=== PATIENT | female | born 1960 | race Caucasian/White ===

== ENCOUNTER 2021-04-05 18:02 | Outpatient (REF) | payer BC, SELFPAY ==
[2021-04-05 18:08] LABS: Appearance Urine HAZY; Color Urine YELLOW; Glucose Urine UA NEG (NEG); Leukocyte Esterase Urine 3+ (NEG); Nitrite Urine NEG (NEG); UACC Culture Trigger YES; Urine Blood TRACE (NEG); Urine Ketones NEG (NEG); Urine Protein NEG (NEG-TRACE)
[2021-04-05 18:17] LABS: Bacteria Urine 1+ /LPF; RBC Urine 0-2 /HPF (0); Squamous Epithelial Cell Urine 2+ /LPF
== END 2021-04-05 18:03 | disposition home or self-care (01) ==
LOC: HO.LNP 18:02
PROVIDERS: Visit Provider Physician Assistant
DX: N39.0 Urinary tract infection, site not specified (principal)
CPT/HCPCS: 81001; 87086

== ENCOUNTER 2021-04-18 16:20 | Outpatient (REF) | payer BC, SELFPAY ==
--- NOTE | ~2021-04-18 | US_ITS ---
EXAMINATION: US RETROPERITONEAL LIMITED (RENAL ONLY) CLINICAL INFORMATION: Calculus of kidney. COMPARISON: Ultrasound kidneys and bladder 07/05/2019. KUB and renal ultrasound 11/02/2018. TECHNIQUE: Real-time imaging of the kidneys. FINDINGS: RIGHT KIDNEY: 11.3 x 3.5 x 4.5 cm (SAG x AP x TRV). The kidney is normal in size, contour, and echogenicity. Renal cortical thickness is normal. No calculi or focal parenchymal lesions. No hydronephrosis. LEFT KIDNEY: 10.8 x 4.3 x 3.7 cm (SAG x AP x TRV). The kidney is normal in size, contour, and echogenicity. Renal cortical thickness is normal. No calculi or focal parenchymal lesions. No hydronephrosis. US/US renal BI IMPRESSION: Normal renal ultrasound. No stone seen.
== END 2021-04-18 16:21 | disposition home or self-care (01) ==
LOC: HO.US 16:20
PROVIDERS: Visit Provider Internal Medicine
DX: N20.0 Calculus of kidney (principal)
CPT/HCPCS: 76775

== ENCOUNTER 2021-04-26 10:53 | Outpatient (REF) | payer BC, SELFPAY ==
--- NOTE | ~2021-04-26 | MM_ITS ---
EXAMINATION: MM SCREENING DIGITAL BREAST TOMOSYNTHESIS, BILATERAL CLINICAL INFORMATION: Screening. Asymptomatic. The lifetime risk of breast cancer based on the Tyrer-Cuzick Model is 13.6%. COMPARISON: Mammography: January 28, 2019 and studies dating back to March 28, 2012 TECHNIQUE: Digital breast tomosynthesis is performed in both the craniocaudal and mediolateral oblique views along with computer-aided detection (CAD). Synthesized 2D images are generated from the tomosynthesis. FINDINGS: There are scattered areas of fibroglandular density (ACR BI-RADS breast composition Category b). There are no significant masses, abnormal calcifications, or other abnormalities. MM/MM tomosynthesis screening BI IMPRESSION: There are no significant changes from prior study. ASSESSMENT: BI-RADS 1: Negative RECOMMENDATION: Routine annual mammography screening. This patient's information was entered into a reminder system with a target due date for their next mammogram.
--- NOTE | ~2021-04-26 | XR_ITS ---
EXAMINATION: XR ABDOMEN KUB CLINICAL INDICATION: Low back pain COMPARISON: Previous KUB October 2018 and renal ultrasound 04/18/2021 TECHNIQUE: AP view of the abdomen. FINDINGS: There are no calcifications projecting is seen projecting over the kidneys. There are stable pelvic calcifications likely representing calcified phleboliths. The bowel gas pattern is normal. There are degenerative changes of the lower lumbar spine. XR/XR KUB IMPRESSION: No renal stone seen.
== END 2021-04-26 10:54 | disposition home or self-care (01) ==
LOC: HO.MAMMO 10:53
PROVIDERS: PCP Internal Medicine; Visit Provider Internal Medicine
DX: Z12.31 Encounter for screening mammogram for malignant neoplasm of breast (principal); M54.50 Low back pain, unspecified
CPT/HCPCS: 74018; 77063; 77067

== ENCOUNTER 2021-05-09 09:55 | Outpatient (REF) | payer BC, SELFPAY ==
--- NOTE | ~2021-05-09 | US_ITS ---
EXAMINATION: US ABDOMEN COMPLETE CLINICAL INFORMATION: Lower abdominal pain. COMPARISON: KUB 04/26/2021. Renal ultrasound 04/18/2021 TECHNIQUE: Real-time imaging of the abdominal viscera. FINDINGS: PANCREAS: Normal. ABDOMINAL AORTA: The proximal, mid, and distal segments are normal in caliber. INFERIOR VENA CAVA: Visualized portions are normal. LIVER: Normal. The liver is normal in size. The liver contour is normal. Parenchymal echogenicity is normal. No focal hepatic lesion. There is no intrahepatic biliary duct dilatation seen. GALLBLADDER: Surgically absent. COMMON BILE DUCT: Normal in caliber measuring 0.41 cm in diameter. RIGHT KIDNEY: No hydronephrosis. No renal calculi or focal parenchymal lesions. The kidney measures 10.7 cm in maximum dimension. There is mild fullness right kidney. LEFT KIDNEY: Normal. No hydronephrosis. No renal calculi or focal parenchymal lesions. The kidney measures 9.6 cm in maximum dimension. SPLEEN: Normal. The spleen measures 9.2 cm in maximum dimension. FREE FLUID: None. US/US abdomen complete IMPRESSION: Mild fullness right kidney pelvis. Otherwise unremarkable complete abdomen ultrasound.
== END 2021-05-09 09:56 | disposition home or self-care (01) ==
LOC: HO.HMGCX 09:55
PROVIDERS: PCP Internal Medicine; Visit Provider Internal Medicine
DX: R10.30 Lower abdominal pain, unspecified (principal)
CPT/HCPCS: 76700

== ENCOUNTER 2021-05-17 15:26 | Outpatient (REF) | payer BC, SELFPAY ==
--- NOTE | ~2021-05-17 | US_ITS ---
EXAMINATION: US PELVIS CLINICAL INFORMATION: Lower abdominal pain. COMPARISON: None. TECHNIQUE: Ultrasound of the pelvis is performed using both transabdominal and transvaginal transducers along with Doppler. Transvaginal imaging is performed due to inadequate visualization transabdominally. FINDINGS: Uterus: The uterus is anteverted and measures 6.6 x 2.4 x 4.1 cm for a volume of 35 mL. The double wall endometrial thickness is 2.0 mm. A small amount of fluid is present in the endometrial cavity. The uterus is smooth in contour and has normal myometrial echogenicity. 3 uterine fibroids are present measuring 1.1 x 0.7 x 0.9 cm, 0.7 x 0.8 x 0.8 cm, and 0.9 x 0.8 x 0.7 cm. These are all clustered near the fundus. Adnexa: The right ovary could not be visualized. Left ovary was not seen with certainty but may measure 1.4 x 0.8 x 1.1 cm. US/US pelvic and transvaginal IMPRESSION: 1. Small uterine fibroids as described above. 2. Suboptimal visualization of the ovaries.
== END 2021-05-17 15:27 | disposition home or self-care (01) ==
LOC: HO.HMGCX 15:26
PROVIDERS: Visit Provider Internal Medicine
DX: R10.30 Lower abdominal pain, unspecified (principal)
CPT/HCPCS: 76830; 76856

== ENCOUNTER 2021-06-26 15:08 | Outpatient (REF) | payer BC, SELFPAY ==
--- NOTE | ~2021-06-26 | MM_ITS ---
EXAMINATION: BONE DENSITOMETRY CLINICAL INDICATION: Age-related osteoporosis without current pathological fracture. COMPARISON: Previous BD dated 01/17/2020 and baseline BD dated 01/31/2015. TECHNIQUE: Using a [employer] DXA System (software version: 13.1) manufactured by [employer], dual-energy x-ray absorptiometry was performed of the lumbar spine and left hip. The images are of good technical quality. Summary results are attached. FINDINGS: AP SPINE L1-L4: Current: BMD 1.169 g/cm2, Z-score 1.2, T-score -0.1, normal, 7.1% increase from previous, 13.2% increase from baseline (<5% change is not significant). Prior: BMD 1.091 g/cm2. Baseline: BMD 1.033 g/cm2. LEFT FEMUR, NECK: Current: BMD 0.644 g/cm2, Z-score -1.5, T-score -2.8, osteoporosis. Prior: BMD 0.633 g/cm2. Baseline: BMD 0.647 g/cm2. LEFT FEMUR, TOTAL: Current: BMD 0.727 g/cm2, Z-score -1.2, T-score -2.2, osteopenia, 2.4% increase from previous, 4.3% increase from baseline (<5% change is not significant). Prior: BMD 0.710 g/cm2. Baseline: BMD 0.697 g/cm2. IDENTIFIED RISK FACTORS: Osteoporosis, history of fracture (adult), menopause. HISTORY OF FRACTURE: Elbow. MEDICATIONS: Calcium supplements or multivitamin, vitamin D, bisphosphonate. MM/XR DEXA axial skeleton IMPRESSION: 1. DIAGNOSIS: Osteoporosis based on the lowest T-score value of -2.8 in the femoral neck applying World Health Organization criteria. 2. 10-YEAR FRACTURE RISK PREDICTION, FRAX: According to the guidelines, FRAX calculation should only be performed on patients in the osteopenia bone density category. 3. Treatment Recommendations: NOF guidelines recommend consideration for treatment in postmenopausal women and men age 50 and older presenting with the following: -A hip or vertebral (clinical or morphometric) fracture. -T-score less than or equal to -2.5 at the femoral neck or spine after appropriate evaluation to exclude secondary causes. -Low bone mass at the hip or spine and a 10-year fracture probability by FRAX of greater than or equal to 3% for hip fracture or greater than or equal to 20% for major osteoporotic fracture based on the [place] adapted WHO algorithm. 4. Other Recommendations: All treatment decisions require clinical judgment and consideration of individual patient factors, including patient preferences, comorbidities, previous drug use, risk factors not captured in the FRAX model (e.g. frailty, falls, vitamin D deficiency, increased bone turnover, interval significant decline in bone density) and possible under or overestimation of fracture risk by FRAX. Additional medical evaluation for secondary cause of low bone mineral density may be appropriate. FUTURE SCAN RECOMMENDATION: People with diagnosed cases of osteoporosis or at high risk for fracture should have regular bone mineral density tests. For patients eligible for Medicare, routine testing is allowed once every 2 years. The testing frequency can be increased to one year for patients who have rapidly progressing disease, those who are receiving or discontinuing medical therapy to restore bone mass, or have additional risk factors.
== END 2021-06-26 15:09 | disposition home or self-care (01) ==
LOC: HO.MAMMO 15:08
PROVIDERS: Visit Provider Internal Medicine
DX: M81.0 Age-related osteoporosis without current pathological fracture (principal); Z78.0 Asymptomatic menopausal state
CPT/HCPCS: 77080

== ENCOUNTER → 2021-07-19 16:07 | Outpatient (BNVA) | payer BC, SELFPAY | PROVIDERS: PCP Internal Medicine; Referring Provider Internal Medicine; Visit Provider Nurse Practitioner ==

== ENCOUNTER 2021-10-05 09:15 | Day surgery (SDC) | payer BC, SELFPAY ==
[2021-08-02 11:09] VITALS: BMI 25.2
[2021-10-05 09:21] VITALS: BP 112/43; PULSE 67; RESP 18; TEMP 36.6; O2SAT 97
--- NOTE | 2021-10-05 09:48 | MHC.SHP ---
Pre-Procedural Eval Section A Date of Service: 10/05/21 The patient is an INPATIENT: No The History & Physical has been completed within 30 days and I have reviewed it.: No Section B Chief Complaint: Screen, hx of polyps, Family hx of Colon Cancer Details of Present Illness: Colon cancer screening, history of colon polyps, family history of colon polyps (Dad in his 60's) Relevant Family History (Specify if Yes): Yes Relevant Social History: Tobacco Use (former smoker) Present Medications: see Short Stay Collaborative assessment Medical History: Significant History (Osteoporosis Impaired fasting glucose Nephrolithiasis Migraine Low back pain) History of Previous Operations: Relevant previous surgery/procedure and date(s) (History of colonoscopy Hx laparoscopic cholecystectomy Previous section) Allergies: Allergies Allergy/AdvReac Type Severity Reaction Status Date / Time Sulfa (Sulfonamide Allergy Severe itching/swelling Verified 08/02/21 11:06 Antibiotics) from sulfa [SULFA (SULFONAMIDE eyedrops/family ANTIBIOTICS)] hx sulfa allery Review of Systems Sugical H&P ROS: Negative: Constitution, Cardiovascular, Respiratory and Gastrointestinal Exam Surgical H&P Exam: Normal: Heart, Normal: Lungs, Normal: Extremities and Normal: Abdomen Plan Diagnosis/Plan: Unchanged I have reviewed the history and physical and performed a pertinent physical examination on my patient. No changes have occurred unless specified.
--- NOTE | 2021-10-05 09:51 | W.PM.OPN ---
Operative Note Operative Note Date of Service: 10/05/21 Narrative: Pre-op diagnosis: Colon cancer screening, history of colon polyps, family history of colon polyps (Dad in his 60's) Post-op diagnosis:?other (Colon polyps, diverticulosis, hemorrhoids) Procedure: COLONOSCOPY TILL CECUM WITH BIOPSY, SNARE POLYPECTOMY AND SUBMUCOSAL INJECTION Consent: Indications for the procedure and potential complications of bleeding, perforation, reaction to medications and missed diagnosis were discussed with the patient and informed consent was obtained. Instrument: Olympus PCF H 190 L variable stiffness pediatric colonoscope Monitoring: Vital signs and clinical assessment, intermittent blood pressure monitoring, continuous EKG monitoring, Pulse oximetry and Carbon Dioxide monitoring were done throughout the procedure. Colon withdrawl time was 22 minutes. Procedure: The patient was placed in the left lateral decubitis position and pre-procedure medications were administered. After a digital rectal examination of the ano-rectum, the video colonoscope was inserted into the rectum and advanced through the colon to the cecum. The colonoscope was slowly withdrawn in a retrograde panoramic fashion and the colon mucosa was carefully examined including a retroflexed view of the rectum. Findings and interventions are described below. Procedure Difficulty:? Colon was long and tortuous and there was some loop formation. No manuvers were required Findings: Terminal Ileum: Not evaluated Cecum:? A 10 mm flat polyp removed with a cold snare Ascending Colon:? A 7-8 mm sessile polyp ? at site of previous polypectomy removed with a cold snare - polyp was not retrieved.? A 4-5 mm sessile polyp removed with the cold biopsy. Transverse Colon:? A 2 to 2.5 cms flat polyp at 60 cms.? Polyp was raised with 2 cc of normal saline and removed with a hot snare.? Polypectomy site was marked with Katharine ink. Descending Colon:? Moderate diverticulosis Sigmoid Colon:? Severe diverticulosis Rectum:? Normal Ano-rectum:? Moderate internal hemorrhoids Colon preparation:? Good? Impression and Post Procedure Diagnosis: Colonoscopy Findings: Four small to medium sized polyps removed Moderate diverticulosis seen in the left colon Moderate hemorrhoids on retroflexed exam. Plan: Await pathology results Patient has an appointment on 10/12/21 in the GI [facility] with? Ching Enciso NP. Repeat Colonoscopy interval based on path results - in 3 years if polyps are adenomatous and 10 years if polyps are hyperplastic. Above findings were reviewed with the patient and colon polyps and diverticulosis handouts were given in the discharge area Surgeon: Pool Edmonds MD Anesthesia:?MAC (Dr Reyes) Was an Salmon Gillnet Vessel Operator used for this Procedure?:?Yes Salmon Gillnet Vessel Operator:?Soraya Ayers Estimated blood loss (mL):?0 Pathology:?other (A- CECAL POLYPS? B- ASCENDING COLON POLYP? C- TRANSVERSE COLON POLYP AT 60CM) Condition:?stable Disposition:?PACU
--- NOTE | 2021-10-05 10:12 | P.CONAN_ITS ---
[facility] Active Problems Active Problems: All Active Problems (Updated 08/02/21 @ 11:08 by Olivia Flowers RN) Nephrolithiasis (Acute) Low back pain (Acute) Lower abdominal pain, unspecified (Acute) Colon cancer screening (Acute) Family history of colon cancer (Acute) Sessile colonic polyp (Acute) Osteoporosis (Acute) Impaired fasting glucose (Acute) Migraine (Acute) Past Medical History Medical History (Updated 08/02/21 @ 11:08 by Olivia Flowers RN) COVID-19 vaccine series completed Impaired fasting glucose Migraine Osteoporosis Post-operative nausea and vomiting Functional capacity: independent ambulation Patient : No Family History Family history of problems with anesthesia: No Surgical History Surgical History History of colonoscopy History of esophagogastroduodenoscopy (EGD) Hx laparoscopic cholecystectomy Hx of tonsillectomy Previous section History of Problems with Anesthesia: No Social History Social History Housing: House Are you a primary caretaker grounds to a significant other at home: No Do you presently have visiting nurse or other home services: No Alcohol intake: current Alcohol intake frequency: holidays/special occasions only Patient Tobacco Use Status: Former Tobacco user Quit Date: age 18 Tobacco use type: Cigarette Second Hand Smoke Exposure: Yes Use of substances other than those prescribed or required for medical reasons: No Have you been hit, kicked, punched, or otherwise hurt by someone within the past year? If so, by whom?: No Are you DNR?: No Advance Directives: No Advance Directives Information Provided: Yes (as above noted) Advance Directives on File: No Recently lost weight without trying: No Eating poorly because of decreased appetite: No Nutrition Risks: No Nutritional Risk Poor oral hygiene: No service: No Current occupational status: employed Meds Allergies Allergy/AdvReac Type Severity Reaction Status Date / Time Sulfa (Sulfonamide Allergy Severe itching/swelling Verified 08/02/21 11:06 Antibiotics) from sulfa [SULFA (SULFONAMIDE eyedrops/family ANTIBIOTICS)] hx sulfa allery Home Medications Medication Instructions Recorded Confirmed Last Taken Type calcium carbonate 600 mg calcium 600 mg PO DAILY 08/02/21 08/02/21 Unknown History (1,500 mg) tablet (Calcium) cholecalciferol (vitamin D3) 25 25 mcg PO DAILY 08/02/21 08/02/21 Unknown History mcg (1,000 unit) capsule (Vitamin D3) Exam Exam Date and Time: October 05, 2021 1012 Height,Weight and Vital Signs: Height 5 ft 6 in Weight 70.76 kg Last Vital Signs Temp 98 F 10/05/21 09:21 Pulse 67 10/05/21 09:21 Resp 18 10/05/21 09:21 BP 112/43 L 10/05/21 09:21 Pulse Ox 97 10/05/21 09:21 Airway Mallampati Class: II TM Dist: >3cm Neck ROM: Full Heart: RRR Lungs: CTA Assessment and Plan Final Anesthetic Review Family History of Problems with Anesthesia: No History of Problems with Anesthesia: No ASA Class: II Final Preanesthetic Review: No Changes in Pt Med Stat, Meds/Allgs Chart Reviewed, Consent Obtained/Reviewed and Anes Risks/Benef Reviewed Patient Risk: Low Procedure Risk: Low Anesthetic Plan Anesthetic Plan: MAC: Disposition: Standard PACU
[2021-10-05 11:36] VITALS: BP 120/59; PULSE 78; RESP 16; TEMP 36.6; O2SAT 97
[2021-10-05 11:51] VITALS: BP 118/53; PULSE 72; RESP 18; O2SAT 100
[2021-10-05 12:06] VITALS: BP 118/52; PULSE 64; RESP 18; TEMP 36.6; O2SAT 100
--- NOTE | 2021-10-05 17:54 | HO.POSTANES ---
Post Anesthesia Evaluation Post Anesthesia Evaluation Vital Signs: Vital Signs Temp Pulse Resp BP Pulse Ox 10/05/21 12:06 97.8 F 64 18 118/52 L 100 10/05/21 11:51 72 18 118/53 L 100 10/05/21 11:36 97.9 F 78 16 120/59 L 97 10/05/21 09:21 98 F 67 18 112/43 L 97 Anesthesia: Monitored Mental Status: Awake Pain Control: Satisfactory Nausea/Vomiting: None Hydration: Adequate Anesthesia-Related Issues: No Anes. Related Issues
== END 2021-10-05 13:27 | disposition home or self-care (01) ==
PROVIDERS: PCP Internal Medicine; Visit Provider Internal Medicine Gastroenterology
PROC: 0DJD8ZZ Inspection of Lower Intestinal Tract, Via Natural or Artificial Opening Endoscopic (ICD-10-PCS; CPT 45378; principal; 2021-10-05 10:20)
DX: Z12.11 Encounter for screening for malignant neoplasm of colon (principal); Z80.0 Family history of malignant neoplasm of digestive organs; Z86.010 Personal history of colon polyps; D12.0 Benign neoplasm of cecum; D12.2 Benign neoplasm of ascending colon; D12.3 Benign neoplasm of transverse colon; K57.30 Diverticulosis of large intestine without perforation or abscess without bleeding; K64.8 Other hemorrhoids; R73.01 Impaired fasting glucose; M81.0 Age-related osteoporosis without current pathological fracture; G43.909 Migraine, unspecified, not intractable, without status migrainosus; Z90.49 Acquired absence of other specified parts of digestive tract; Z87.891 Personal history of nicotine dependence
CPT/HCPCS: 45385; 45380; 45381; 88305

== ENCOUNTER → 2021-10-12 16:05 | Outpatient (BNVA) | payer BC, SELFPAY | PROVIDERS: PCP Internal Medicine; Referring Provider Internal Medicine; Visit Provider Nurse Practitioner | DX: Z13.89 Encounter for screening for other disorder (principal) ==

== ENCOUNTER 2022-05-17 16:13 | Outpatient (REF) | payer BC, SELFPAY ==
--- NOTE | ~2022-05-17 | CT_ITS ---
EXAMINATION: CT ABDOMEN AND PELVIS WITHOUT CONTRAST CLINICAL INFORMATION: Lower abdominal pain COMPARISON: Previous ultrasound of the abdomen and pelvis from 2020 TECHNIQUE: Multidetector volumetric imaging was performed from the superior aspect of the liver through the pubic symphysis. Sagittal and coronal reformatted images were obtained on the technologist's workstation. This CT examination was performed using dose optimization techniques as appropriate, variously including the following: *Automated exposure control *Adjustment of mA and/or kV according to patient size (this includes techniques or standardized protocols for targeted exams where dose is matched to indication/reason for exam; i.e. extremities or head) *Use of iterative reconstruction technique DLP: 463 mGy-cm FINDINGS: LUNG BASES: The visualized lung bases are unremarkable. LIVER, GALLBLADDER, AND BILIARY TREE: The liver is normal in size, shape, and attenuation. No focal hepatic lesion or biliary ductal dilatation is present. The gallbladder has been removed. PANCREAS: Unremarkable. SPLEEN: Unremarkable. ADRENAL GLANDS: Unremarkable. KIDNEYS AND URETERS: The kidneys are normal in size, shape, and attenuation. No hydronephrosis, hydroureter, or calculi seen. No perinephric stranding. BLADDER: Unremarkable. GASTROINTESTINAL TRACT: The small and large bowel are unremarkable. The appendix is unremarkable. ABDOMINAL WALL: Small umbilical hernia containing fat. LYMPH NODES: Normal. VASCULAR: Unremarkable. PELVIC VISCERA: There may be a small fundal uterine fibroid. Uterus and adnexa are otherwise unremarkable. OSSEOUS STRUCTURES: Degenerative changes of the lower lumbar spine. CT/CT abdomen pelvis wo IV con IMPRESSION: No acute findings. Fleischner guidelines were followed.
== END 2022-05-17 16:14 | disposition home or self-care (01) ==
LOC: HO.CT 16:13
PROVIDERS: PCP Internal Medicine; Visit Provider Urology
DX: N20.0 Calculus of kidney (principal); R10.30 Lower abdominal pain, unspecified
CPT/HCPCS: 74176

== ENCOUNTER 2022-05-22 16:00 | Outpatient (REF) | payer BC, SELFPAY ==
--- NOTE | ~2022-05-22 | MM_ITS ---
EXAMINATION: MM SCREENING DIGITAL BREAST TOMOSYNTHESIS, BILATERAL CLINICAL INFORMATION: Screening. Asymptomatic. The lifetime risk of breast cancer based on the Tyrer-Cuzick Model is 15%. COMPARISON: Mammography: 04/16/2021, 01/28/2019, 01/14/2018 TECHNIQUE: Digital breast tomosynthesis is performed in both the craniocaudal and mediolateral oblique views along with computer-aided detection (CAD). Synthesized 2D images are generated from the tomosynthesis. FINDINGS: There are scattered areas of fibroglandular density (ACR BI-RADS breast composition Category b). Parenchymal pattern is similar to prior studies. There is no developing density or architectural abnormality. There is a dermal lesion again noted overlying the posterior inferior lateral right breast. The axilla are unremarkable. No significant changes. MM/MM tomosynthesis screening BI IMPRESSION: No mammographic evidence of malignancy. ASSESSMENT: BI-RADS 2: Benign RECOMMENDATION: Routine annual mammography screening. This patient's information was entered into a reminder system with a target due date for their next mammogram.
== END 2022-05-22 16:01 | disposition home or self-care (01) ==
LOC: HO.MAMMO 16:00
PROVIDERS: PCP Internal Medicine; Visit Provider Internal Medicine
DX: Z12.31 Encounter for screening mammogram for malignant neoplasm of breast (principal)
CPT/HCPCS: 77063; 77067

== ENCOUNTER → 2023-05-28 16:00 | Outpatient (BNV) | payer BC, SELFPAY | PROVIDERS: PCP Internal Medicine; Visit Provider Radiology Diagnostic Radiology | DX: Z12.31 Encounter for screening mammogram for malignant neoplasm of breast (principal) | CPT/HCPCS: 77063; 77067 ==

== ENCOUNTER 2023-05-28 16:01 | Outpatient (REF) | payer BC, SELFPAY | END 2023-05-28 16:02 | disposition home or self-care (01) | LOC: HO.MAMMO 16:01 | PROVIDERS: PCP Internal Medicine; Visit Provider Internal Medicine | DX: Z12.31 Encounter for screening mammogram for malignant neoplasm of breast (principal) | CPT/HCPCS: 77063; 77067 ==

== ENCOUNTER 2023-05-29 15:57 | Outpatient (REF) | payer BC, SELFPAY ==
--- NOTE | ~2023-05-29 | US_ITS ---
EXAMINATION: US RETROPERITONEAL COMPLETE (RENAL) CLINICAL INFORMATION: Kidney stones. COMPARISON: CT abdomen and pelvis 05/17/2022. Ultrasound abdomen complete 05/09/2021. X-ray KUB 04/26/2021 and 11/02/2018. Renal ultrasound 04/18/2021. TECHNIQUE: Real-time imaging of the kidneys and bladder. FINDINGS: RIGHT KIDNEY: 10.1 x 4.1 x 5.3 cm (SAG x AP x TRV). The kidney is normal in size, contour, and echogenicity. Renal cortical thickness is normal. No calculi or focal parenchymal lesions. No hydronephrosis. LEFT KIDNEY: 10.4 x 5.2 x 5.3 cm (SAG x AP x TRV). The kidney is normal in size, contour, and echogenicity. Renal cortical thickness is normal. No calculi or focal parenchymal lesions. No hydronephrosis. BLADDER: Well distended and normal. Bilateral ureteral jets are demonstrated. Prevoid bladder volume is 165 mL. Postvoid bladder volume is 6.1 mL. US/US retroperitoneal comp IMPRESSION: Negative exam. No stones are seen nor were any stones seen on the recent CT scan.
== END 2023-05-29 15:58 | disposition home or self-care (01) ==
LOC: HO.HMGCX 15:57
PROVIDERS: PCP Internal Medicine; Visit Provider Urology
DX: N20.0 Calculus of kidney (principal)
CPT/HCPCS: 76770

== ENCOUNTER 2023-08-16 08:03 | Outpatient (REF) | payer BC, SELFPAY ==
[2023-08-16 11:47] LABS: MANUAL DIFF FLAG NO
[2023-08-16 11:55] LABS: Basophils Percent Auto 0.6 % (0-2); Eosinophils Absolute Auto 0.1 X10*3/uL (0.0-0.4); Eosinophils Percent Auto 2.3 % (0-4); Hematocrit 39.8 % (37.0-47.0); Hemoglobin 13.6 g/dl (12.0-16.0); Imm Gran Abs Auto 0.01 X10*3/uL (0.00-0.03); Imm Gran Pct Auto 0.2 % (0.0-0.4); Lymphocytes Absolute Auto 1.7 X10*3/uL (1.2-4.9); Lymphocytes Percent Auto 35.4 % (20-40); Mean Corpuscular HGB Conc 34.2 g/dl (31.0-35.0); Mean Corpuscular Hemoglobin 28.7 pg (27.0-33.0); Mean Platelet Volume 10.2 fL (9.4-12.3); Monocytes Absolute Auto 0.4 X10*3/uL (0.1-1.2); Monocytes Percent Auto 7.6 % (2-11); Neutrophils Absolute Auto 2.6 x10*3/uL (2.0-8.3); Neutrophils Percent Auto 53.9 % (45-73); Platelet Count 241 X10*3/uL (160-400); Red Blood Count 4.74 X10*6/uL (4.20-5.50); Red Cell Distribution Width 12.9 % (11.0-16.0); White Blood Count 4.8 X10*3/uL (4.8-10.8)
[2023-08-16 11:58] LABS: Appearance Urine Clear; Color Urine Yellow; Glucose Urine UA Negative (Negative); Leukocyte Esterase Urine Large (3+) (Negative); Nitrite Urine Negative (Negative); Specific Gravity - Urine 1.015 (1.005-1.025); UMIC TRIGGER UACC YES; Urine Blood Negative (Negative); Urine Ketones Negative (Negative); Urine Protein Negative (Neg-Trace)
[2023-08-16 12:06] LABS: Bacteria Urine Trace (None Seen); Hyaline Casts Urine 0-2 /LPF (0-2); RBC Urine 0-2 /HPF (0-2); UACC Culture Trigger YES; WBC Urine 21-50 /HPF (0-5)
[2023-08-16 12:15] LABS: Estimated Average Glucose 111 mg/dL; Hemoglobin A1c % 5.5 % (<6.0)
[2023-08-16 12:26] LABS: Alanine Aminotransferase 8 U/L (0-31); Albumin Level 3.8 g/dL (3.5-5.0); Alkaline Phosphatase 48 U/L (39-117); Anion Gap 10 (12-20); Aspartate Amino Transferase 13 U/L (5-31); Bilirubin Total 0.4 mg/dL (0.0-1.0); Blood Urea Nitrogen 11 mg/dL (9-16); Calcium 9.4 mg/dL (8.4-10.2); Carbon Dioxide 30 mmol/L (22-29); Chloride 103 mmol/L (96-108); Cholesterol 171 mg/dL (<200); Estimated Glomerular Filt Rate > 60; Glucose Fasting 91 mg/dL (60-99); HDL Cholesterol 56 mg/dL (>40); LDL Cholesterol Calculated 105 mg/dL (<100); Potassium 4.3 mmol/L (3.3-5.1); Sodium 139 mmol/L (135-145); Total Protein 6.8 g/dL (6.5-8.0); Triglycerides 54 mg/dL (<150)
[2023-08-16 12:45] LABS: TSH reflex Free T4 0.58 uIU/mL (0.32-4.0)
== END 2023-08-16 08:04 | disposition home or self-care (01) ==
LOC: HO.HMGCLDS 08:03
PROVIDERS: PCP Internal Medicine; Visit Provider Internal Medicine
DX: E78.00 Pure hypercholesterolemia, unspecified (principal); E55.9 Vitamin D deficiency, unspecified; G43.909 Migraine, unspecified, not intractable, without status migrainosus; R73.01 Impaired fasting glucose; R30.0 Dysuria
CPT/HCPCS: 36415; 80053; 80061; 81001; 81003; 82306; 83036; 84443; 85025; 87086

== ENCOUNTER 2023-08-29 17:02 | Outpatient (AMB) | payer BC, SELFPAY ==
[2023-08-29 17:09] VITALS: BP 116/64; PULSE 60; O2SAT 99; BMI 25.6
--- NOTE | 2023-08-29 17:09 | A.OFFPC_ITS ---
Vital Signs 08/29/23 17:09 Height 5 ft 6 in Weight 158 lb 8 oz BMI 25.6 BP 116/64 Blood Pressure Location Lt brachial Position Sitting Pulse 60 Pulse Source Pulse Oximeter Pulse Oximetry (%) 99 Oxygen Delivery Method Room Air Intake Visit Reasons: Annual PE Intake Note: Patient is here today for a physical. 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 Accompanied by: Self / Same As Patient Allergies Sulfa (Sulfonamide Antibiotics) [SULFA (SULFONAMIDE ANTIBIOTICS)] Allergy (Severe, Verified 08/31/23 11:16) itching/swelling from sulfa eyedrops/family hx sulfa allery Medication List - Last Reconciled 08/31/23 by Agustín Gardiner MD calcium carbonate (Calcium) 600 mg PO DAILY cholecalciferol (vitamin D3) (Vitamin D3) 25 mcg PO DAILY hydrocodone-acetaminophen 5-325 mg 1 tab PO Q6-8H PRN 30 days meloxicam 7.5 mg PO DAILY PRN sumatriptan succinate 50 mg PO BID PRN Tobacco use date assessed: 08/29/23 Fall risk assessment: No Falls in past year Last assessed Fall Risk: 08/29/23 Dental Screening Dental Screen Date: 08/29/23 Did you have a dental visit in the last 12 months?: Yes Did you have a dental problem in the last 6 months where you did not have access to dental care?: No Was dental information given to patient?: Patient has dentist HPI Annual PE HPI Details Patient comes in today for her annual physical examination - was last seen in April 2021 States that she feels okay She denies any headaches or dizziness Denies any chest pains, no SOB No nausea/vomiting, no abdominal pain No change in bowel habits noted She denies any acute urinary symptoms Had her follow up labs done a couple of weeks ago - to discuss her results She had her mammogram last done in May 2023 but had not yet had her annual gynecology exam and pap smear updated States that she used to come here to [facility] but 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 and is currently still trying to decide where to go She had her colonoscopy last done in 09/2021 and will be due for repeat colonoscopy in 3 years (2024) due to (+) tubular adenoma She is also scheduled for her repeat BMD next month on 09/29/2023 Adds that 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 and concentrate on her own health and well-being [facility] Medical History (Updated 08/31/23 @ 16:17 by Agustín Gardiner MD) Vitamin D deficiency COVID-19 vaccine series completed Post-operative nausea and vomiting Osteoporosis Impaired fasting glucose Migraine Surgical History Hx of tonsillectomy History of esophagogastroduodenoscopy (EGD) History of colonoscopy Hx laparoscopic cholecystectomy Previous section Social History Housing: House Are you a primary lawn care worker to a significant other at home: No Do you presently have visiting nurse or other home services: No Alcohol intake: current Alcohol intake frequency: holidays/special occasions only Patient Tobacco Use Status: Former Tobacco user Quit Date: age 18 Tobacco use type: Cigarette e-Cigarette/Vaping Use: Never Used Second Hand Smoke Exposure: Yes service: No Current occupational status: employed Cognitive needs: No Hearing needs: No Vision needs: No Questionnaire PHQ-9 Over the last 2 weeks, how often have you been bothered by any of the following problems? 1. Little interest or pleasure in doing things: not at all 2. Feeling down, depressed, or hopeless: not at all 3. Trouble falling or staying asleep, or sleeping too much: not at all 4. Feeling tired or having little energy: not at all 5. Poor appetite or overeating: not at all 6. Feeling bad about yourself - or that you are a failure or have let yourself or your family down: not at all 7. Trouble concentrating on things, such as reading the newspaper or watching television: not at all 8. Moving or speaking so slowly that other people could have noticed. Or the opposite - being so fidgety or restless that you have been moving around a lot more than usual: not at all 9. Thoughts that you would be better off or of hurting yourself in some way: not at all Total score: 0 Depression Screening Interpretation: Negative Depression Screening Done: Yes 66557 - PHQ-9 Billing: Yes Source: Developed by Drs. Edgar Olmos, Gina Cool, Darius Mehta and colleagues, with an educational larisa from [employer]. Thrive Questionnaire Date Thrive assessed: 08/29/23 I am a: Patient What is your living situation today?: I have a steady place to live Within the past 12 months, did the food you bought not last and you didn't have the money to get more?: Never true Within the past 12 months, did you worry whether your food would run out before you got money to buy more?: Never true Do you have trouble paying for medicines?: No Do you have trouble getting transportation to medical appointments?: No Do you have trouble paying your heating and electricity bill?: No Do you have trouble taking care of your child, family member or friend?: No Do you have trouble with day-to-day activities such as bathing, preparing meals, shopping, managing finances, etc.?: No Are you currently unemployed and looking for a job?: No Are you interested in more education?: No Please select the resources that you would like help with: None Currently or been in a relationship where the following occur: no concerns reported THRIVE Score: 0 AUDIT C Alcohol Use Questionnaire (AUDIT-C) 1. How often do you have a drink containing alcohol?: Never 3. How often do you have six or more drinks on one occasion?: Never Total Score: 0 Score Reviewed/Action Taken: Yes ALEXANDRIA-7 AMB Questionnaire ALEXANDRIA-7 Date ALEXANDRIA - 7 assessed: 08/29/23 Feeling nervous, anxious, or on edge: 0 = Not at all Not being able to stop or control worryin = Not at all Worrying too much about different things: 0 = Not at all Trouble relaxin = Not at all Being so restless that it is hard to sit still: 0 = Not at all Becoming easily annoyed or irritable: 0 = Not at all Feeling afraid as if something awful might happen: 0 = Not at all Total A[place]RIA-7 score (0-4 normal; 5-9 mild; 10-14 moderate; 15-21 severe): 0 Source: Developed by Drs. Edgar Olmos, Gina Cool, Darius Mehta and colleagues, with an educational larisa from [employer]. ALEX[place]RIA-7 Assessment Billing ALEX[place]RIA-7 Assessment Tool: A[place]RIA-7 Assessment 71649 Review of Systems Const Denies chills, Denies fatigue, Denies fever(s), Denies headache(s) and Denies malaise Eyes Denies blurry vision, Denies change in vision, Denies irritation and Denies itchy eyes ENT Denies dysphagia, Denies dizziness, Denies otalgia, Denies headache(s), Denies nasal congestion, Denies neck pain, Denies odynophagia, Denies sinus pain and Denies sore throat Card Denies chest pain, Denies rapid heart rate, Denies irregular heart rhythm, Denies palpitations and Denies dyspnea Resp Denies chest congestion, Denies cough, Denies dyspnea and Denies wheezing GI Denies abdominal pain, Denies bloating, Denies constipation, Denies dysphagia, Denies heartburn, Denies diarrhea, Denies nausea, Denies odynophagia and Denies vomiting Denies hematuria, Denies urinary frequency, Denies dysuria, Denies urinary incontinence and Denies urinary urgency Musc Reports back pain (on and off, over the lower back), Denies arthralgias, Denies joint swelling, Denies muscle weakness and Denies neck pain Skin/Breast Denies breast pain, Denies breast mass, Denies change in pigmentation, Denies lesions, Denies rash and Denies unusual bruising Neuro Denies dizziness, Denies headache(s) and Denies paresthesias Psych Denies anxiety and Denies depression Endo Denies fatigue and Denies palpitations Alireza/Lymph Denies easy bruising Aller/Immun Denies itchy eyes and Denies wheezing Physical exam (Primary Care) Vital Signs: Last Vital Signs Pulse 60 08/29/23 17:09 BP 116/64 08/29/23 17:09 Pulse Ox 99 08/29/23 17:09 Oxygen Delivery Method Room Air 08/29/23 17:09 BMI result Body Mass Index 25.6 Tobacco/Smoking Status: Tobacco use Status Tobacco use date assessed 08/29/23 08/29/23 17:16 Patient Tobacco Use Status Former Tobacco user 08/29/23 17:16 Tobacco use type Cigarette 08/29/23 17:16 e-Cigarette/Vaping Use Never Used 08/29/23 17:16 PHQ-9: PHQ-9 Score PHQ-9: Total score 0 08/31/23 11:37 Depression Screening Interpretation: Negative Thrive Assessment: Date of Thrive Assessment Date Thrive assessed 08/29/23 08/29/23 17:16 Currently or been in a relationship where the following occur: no concerns reported Const General: no acute distress, alert and awake Orientation/consciousness: patient oriented x3 [facility] Head: Yes normocephalic and Yes atraumatic Ears: external ears normal, TM's normal bilaterally and EAC's normal General nose exam: No nasal discharge present Face and sinus: Yes normal facial exam and Yes sinuses nontender Teeth and gingiva: dentition normal Throat: Yes posterior oropharynx normal and Yes tonsils normal (no TP congestion) Eyes Eyelids: Yes eyelids normal Conjunctivae: conjunctivae normal Pupils: Equal, round and reactive pupils present EOM: EOMs intact bilaterally Neck Neck: Yes no lymphadenopathy and Yes supple Thyroid: Thyroid normal Resp Auscultation: clear to auscultation bilaterally, no rales and no wheezes Cardio Rate: regular rate Rhythm: regular rhythm Heart sounds: no murmurs GI Palpation (GI): Soft to palpation, nontender and No hepatosplenomegaly present Auscultation: normal bowel sounds General: Yes no CVA tenderness Back/Spine/Pelvis Back: no CVA tenderness Thoracic/Lumbar Spine: lumbar spinal tenderness (mild) Skin Lesions: no lesions Rashes: no rashes Neuro General: patient oriented x3, moves all extremities, no focal motor deficits and CN's II-XI intact bilaterally Cranial nerves: Yes Equal, round and reactive pupils present Cognition (Neuro): normal cognition Gait exam (Neuro): Normal gait present Extrem General: Yes no clubbing, cyanosis or edema Results Reviewed Results Reviewed: Laboratory Tests 08/16/23 08/16/23 08/16/23 08:15 08:15 08:20 WBC 4.8 Hgb 13.6 Hct 39.8 Plt Count 241 Sodium 139 Potassium 4.3 Creatinine 0.79 Estimated GFR > 60 Fasting Glucose 91 Hemoglobin A1c % 5.5 Calcium 9.4 AST 13 ALT 8 Triglycerides 54 Cholesterol 171 LDL Cholesterol, Calc 105 H HDL Cholesterol 56 25-OH Vitamin D Total 51.0 TSH 0.58 Ur Specific [place] Urine Protein Urine Glucose (UA) Negative Urine Blood Negative Urine Nitrite Negative Ur Leukocyte Esterase Large (3+) H 08/16/23 08:20 WBC Hgb Hct Plt Count Sodium Potassium Creatinine Estimated GFR Fasting Glucose Hemoglobin A1c % Calcium AST ALT Triglycerides Cholesterol LDL Cholesterol, Calc HDL Cholesterol 25-OH Vitamin D Total TSH Ur Specific [place] 1.015 Urine Protein Negative Urine Glucose (UA) Urine Blood Urine Nitrite Ur Leukocyte Esterase Assessment and Plan Assessment & Plan (1) Annual physical exam: Code(s): Z00.00 - Encounter for general adult medical examination without abnormal findings Plan: Results of her labs done a couple of weeks ago reviewed and discussed with patient She is up-to-date with her colon and breast cancer screenings but is overdue for her gynecology exam and pap smear - states that she is currently still trying to decide on where to go for this and will call for referral once she has decided and if a referral is necessary (2) Osteoporosis: Code(s): M81.0 - Age-related osteoporosis without current pathological fracture Qualifiers: Osteoporosis type: unspecified Presence of current pathological fracture: without current pathological fracture Qualified Code(s): M81.0 - Age- related osteoporosis without current pathological fracture Plan: Patient has been on Alendronate since 01/2016 and was advised when she was last seen in April 2021 to finish up her remaining Rx and then discontinue Alendronate as recommendations for bisphosphonate therapy is only for 5 years Repeat BMD done in June 2021 revealed a T score of -2.8 and her BMD has shown then (+) 7.1% increase from previous and 13.2% increase from baseline in the AP spine and 4% increase from previous, and 4.3% increase from baseline in the left femur She is scheduled for her next BMD next month Patient is presently again advised to continue to stay active and exercise regularly and to continue on her daily Calcium and Vitamin D intake - is on Calcium carbonate 500 mg QD and Vitamin D3 1000 units QD Fall precautions reinforced (3) Migraine: Code(s): G43.909 - Migraine, unspecified, not intractable, without status migrainosus Qualifiers: Intractability: not intractable Migraine type: unspecified Status migrainosus presence: without status migrainosus Qualified Code(s): G43.909 - Migraine, unspecified, not intractable, without status migrainosus Plan: Reinforced avoidance of migraine triggers Continue Sumatriptan 50 mg PRN and Hydrocodone-acetaminophen 5-325 mg Q 6 to 8 hours PRN ONLY for severe headaches (4) Impaired fasting glucose: Code(s): R73.01 - Impaired fasting glucose Plan: HgbA1c on her recent labs came back normal at 5.5%; FBS also was normal then at 91 mg/dl Reinforced low calorie diet/exercise as tolerated (5) Nephrolithiasis: Code(s): N20.0 - Calculus of kidney Plan: (+) Hx of recurrent kidney stones Her KUB and renal US done in late 2020 came back negative; abdominal and pelvic CT in 05/2022 and retroperitoneal US in 05/2023 all showed no evidence of stones in the urinary tract She is encouraged to continue to increase her daily oral fluid intake Follow up with urology (Dr. Davis) as scheduled (6) Low back pain: Code(s): M54.50 - Low back pain, unspecified Qualifiers: Back pain laterality: bilateral Chronicity: acute Sciatica presence: without sciatica Qualified Code(s): M54.50 - Low back pain, unspecified Plan: Is likely due to lumbar spine degenerative disc disease - (+) degenerative changes of the lower lumbar spine were noted incidentally on her abdominal and pelvic CT done back in May 2022; her CT were otherwise unremarkable at the time Reinforced activity and weight-lifting restrictions to avoid aggravating her lower back symptoms Continue Meloxicam 7.5 mg QD with food PRN for pain (7) Vitamin D deficiency: Code(s): E55.9 - Vitamin D deficiency, unspecified Plan: Corrected - continue Vitamin D3 1000 units QD Plan To return in 1 year for her next annual physical examination Will have patient again recheck her labs just before she returns for her annual PE in a year Orders: Orders Complete Blood Count Auto Diff 11 Months D64.9 - Anemia, unspecified Comprehensive [place]. Panel Fast 11 Months E78.00 - Pure hypercholesterolemia, unspecified Lipid Panel 11 Months E78.00 - Pure hypercholesterolemia, unspecified Hemoglobin A1c 11 Months R73.9 - Hyperglycemia, unspecified TSH reflex Free T4 11 Months E78.00 - Pure hypercholesterolemia, unspecified UA CC w/rflx Micro + Cult 11 Months R30.0 - Dysuria Vitamin D 25-OH Total 11 Months E55.9 - Vitamin D deficiency, unspecified Coding Level of Care Code Est Pt Prev Care 40-64y(92478) Diagnoses Annual physical exam Z00.00 Osteoporosis without current pathological fracture, unspecified osteoporosis type M81.0 Osteoporosis type: unspecified Presence of current pathological fracture: without current pathological fracture Migraine without status migrainosus, not intractable, unspecified migraine type G43.909 Intractability: not intractable Migraine type: unspecified Status migrainosus presence: without status migrainosus Impaired fasting glucose R73.01 Nephrolithiasis N20.0 Acute bilateral low back pain without sciatica M54.50 Back pain laterality: bilateral Chronicity: acute Sciatica presence: without sciatica Vitamin D deficiency E55.9 Additional Codes ALEXANDRAI-7 Assessment Billing - ALEX[place]RIA-7 Assessment Tool: A[place]RIA-7 Assessment 20070 ([id number])
== END 2023-08-29 17:39 | disposition home or self-care (01) ==
PROVIDERS: PCP Internal Medicine; Visit Provider Internal Medicine
DX: Z00.00 Encounter for general adult medical examination without abnormal findings (principal); M81.0 Age-related osteoporosis without current pathological fracture; G43.909 Migraine, unspecified, not intractable, without status migrainosus; R73.01 Impaired fasting glucose; N20.0 Calculus of kidney; M54.50 Low back pain, unspecified; E55.9 Vitamin D deficiency, unspecified
CPT/HCPCS: 99396

== ENCOUNTER 2023-09-30 10:11 | Outpatient (REF) | payer BC, SELFPAY ==
--- NOTE | ~2023-09-30 | MM_ITS ---
EXAMINATION: BONE DENSITOMETRY CLINICAL INDICATION: Age-related osteoporosis without current pathological fracture. COMPARISON: Previous BD dated 06/26/2021 and baseline BD dated 01/31/2015. TECHNIQUE: Using a [employer] DXA System (software version: 13.1) manufactured by [employer], dual-energy x-ray absorptiometry was performed of the lumbar spine and left hip. The images are of good technical quality. Summary results are attached. FINDINGS: LEFT FEMUR, NECK: Current: BMD 0.620 g/cm2, Z-score -1.7, T-score -3.0, osteoporosis. Prior: BMD 0.644 g/cm2. Baseline: BMD 0.647 g/cm2. LEFT FEMUR, TOTAL: Current: BMD 0.702 g/cm2, Z-score -1.4, T-score -2.4, osteopenia, 3.4% decrease from previous, 0.7% increase from baseline (<5% change is not significant). Prior: BMD 0.727 g/cm2. Baseline: BMD 0.697 g/cm2. AP SPINE L1-L4: Current: BMD 1.093 g/cm2, Z-score 0.7, T-score -0.7, normal, 6.5% decrease from previous, 5.8% increase from baseline (<5% change is not significant). Prior: BMD 1.169 g/cm2. Baseline: BMD 1.033 g/cm2. IDENTIFIED RISK FACTORS: Menopause, osteoporosis, history of fracture (adult). HISTORY OF FRACTURE: Other. MEDICATIONS: Calcium supplements or multivitamin, vitamin D. MM/XR DEXA axial skeleton IMPRESSION: 1. DIAGNOSIS: Osteoporosis based on the lowest T-score value of -3.0 in the femoral neck applying World Health Organization criteria. 2. 10-YEAR FRACTURE RISK PREDICTION, FRAX: According to the guidelines, FRAX calculation should only be performed on patients in the osteopenia bone density category. Therefore, FRAX was not performed on this patient. 3. Treatment Recommendations: NOF guidelines recommend consideration for treatment in postmenopausal women and men age 50 and older presenting with the following: -A hip or vertebral (clinical or morphometric) fracture. -T-score less than or equal to -2.5 at the femoral neck or spine after appropriate evaluation to exclude secondary causes. -Low bone mass at the hip or spine and a 10-year fracture probability by FRAX of greater than or equal to 3% for hip fracture or greater than or equal to 20% for major osteoporotic fracture based on the [place] adapted WHO algorithm. 4. Other Recommendations: All treatment decisions require clinical judgment and consideration of individual patient factors, including patient preferences, comorbidities, previous drug use, risk factors not captured in the FRAX model (e.g. frailty, falls, vitamin D deficiency, increased bone turnover, interval significant decline in bone density) and possible under or overestimation of fracture risk by FRAX. Additional medical evaluation for secondary cause of low bone mineral density may be appropriate. FUTURE SCAN RECOMMENDATION: People with diagnosed cases of osteoporosis or at high risk for fracture should have regular bone mineral density tests. For patients eligible for Medicare, routine testing is allowed once every 2 years. The testing frequency can be increased to one year for patients who have rapidly progressing disease, those who are receiving or discontinuing medical therapy to restore bone mass, or have additional risk factors.
== END 2023-09-30 10:12 | disposition home or self-care (01) ==
LOC: HO.MAMMO 10:11
PROVIDERS: PCP Internal Medicine; Visit Provider Internal Medicine
DX: Z13.820 Encounter for screening for osteoporosis (principal); Z78.0 Asymptomatic menopausal state; M81.0 Age-related osteoporosis without current pathological fracture
CPT/HCPCS: 77080

== ENCOUNTER 2023-10-16 16:44 | Outpatient (REF) | payer BC, SELFPAY ==
--- NOTE | ~2023-10-16 | XR_ITS ---
EXAMINATION: XR MANDIBLE CLINICAL INFORMATION: Jaw pain. COMPARISON: None available. TECHNIQUE: AP open and closed-mouth as well as bilateral oblique and lateral views of the mandible. FINDINGS: No acute fracture or dislocation. There appears to be mild right temporomandibular joint space narrowing with mild subchondral sclerosis. No concerning lytic or blastic osseous lesion. The visualized paranasal sinuses and mastoid air cells are clear. No abnormal soft tissue calcification. XR/XR mandible min 4V IMPRESSION: 1. Mild right temporomandibular joint space narrowing with mild subchondral sclerosis. 2. No acute fracture or dislocation.
== END 2023-10-16 16:45 | disposition home or self-care (01) ==
LOC: HO.XRAY 16:44
PROVIDERS: PCP Internal Medicine; Visit Provider Internal Medicine
DX: R68.84 Jaw pain (principal)
CPT/HCPCS: 70110

== ENCOUNTER 2024-07-06 14:35 | Outpatient (AMB) | payer MEDICARE, SELFPAY ==
[2024-07-06 14:40] VITALS: BP 110/72; PULSE 75; O2SAT 99; BMI 24.1
--- NOTE | 2024-07-06 14:40 | MHC.PC.OV ---
Vital Signs 07/06/24 14:40 Height 5 ft 6 in Weight 149 lb 2 oz BMI 24.1 BP 110/72 Blood Pressure Location Lt brachial Position Sitting Pulse 75 Pulse Source Pulse Oximeter Pulse Oximetry (%) 99 Oxygen Delivery Method Room Air Intake Visit Reasons: Neck problem Car Jockey Required: No Accompanied by: Self / Same As Patient Allergies Sulfa (Sulfonamide Antibiotics) [SULFA (SULFONAMIDE ANTIBIOTICS)] Allergy (Severe, Verified 07/06/24 15:06) itching/swelling from sulfa eyedrops/family hx sulfa allery Medication List - Last Reconciled 07/06/24 by Agustín Gardiner MD calcium carbonate (Calcium 600) 600 mg PO DAILY cholecalciferol (vitamin D3) (Vitamin D3) 25 mcg PO DAILY hydrocodone-acetaminophen 5-325 mg 1 tab PO Q6-8H PRN 30 days sumatriptan succinate 50 mg PO BID PRN vitamins A,C,O-ihdp-xpqpzz 4,296 mcg-226 mg-90 mg (PreserVision AREDS) 1 cap PO BID Tobacco use date assessed: 07/06/24 Fall risk assessment: No Falls in past year Last assessed Fall Risk: 07/06/24 Dental Screening Dental Screen Date: 07/06/24 Did you have a dental visit in the last 12 months?: Yes Did you have a dental problem in the last 6 months where you did not have access to dental care?: No Was dental information given to patient?: Patient has dentist HPI Neck problem HPI Details Patient comes in today for further evaluation of a recurrent clicking noise that she has noticed in her neck area that started last month just a few days before Brandie Notes that she can hear the clicking in her neck with most neck movements or when she turns her head and is concerned about this due to her diagnosis of osteoporosis States that her neck has been feeling sore and tight often lately - she denies any recent neck injury or trauma She denies any headaches or dizziness No other acute complaints or symptoms are noted [facility] Medical History Vitamin D deficiency COVID-19 vaccine series completed Post-operative nausea and vomiting Osteoporosis Impaired fasting glucose Migraine Surgical History Hx of tonsillectomy History of esophagogastroduodenoscopy (EGD) History of colonoscopy Hx laparoscopic cholecystectomy Previous section Social History Housing: House Are you a primary medicare specialist to a significant other at home: No Do you presently have visiting nurse or other home services: No Alcohol intake: current Alcohol intake frequency: holidays/special occasions only Patient Tobacco Use Status: Former Tobacco user Tobacco use type: Cigarette e-Cigarette/Vaping Use: Never Used Second Hand Smoke Exposure: Yes service: No Current occupational status: employed Cognitive needs: No Hearing needs: No Vision needs: No Questionnaire PHQ-9 Over the last 2 weeks, how often have you been bothered by any of the following problems? 1. Little interest or pleasure in doing things: not at all 2. Feeling down, depressed, or hopeless: not at all 3. Trouble falling or staying asleep, or sleeping too much: not at all 4. Feeling tired or having little energy: not at all 5. Poor appetite or overeating: not at all 6. Feeling bad about yourself - or that you are a failure or have let yourself or your family down: not at all 7. Trouble concentrating on things, such as reading the newspaper or watching television: not at all 8. Moving or speaking so slowly that other people could have noticed. Or the opposite - being so fidgety or restless that you have been moving around a lot more than usual: not at all 9. Thoughts that you would be better off or of hurting yourself in some way: not at all Total score: 0 Depression Screening Interpretation: Negative Depression Screening Done: Yes 80950 - PHQ-9 Billing: Yes Source: Developed by Drs. Edgar Olmos, Gina Cool, Darius Mehta and colleagues, with an educational larisa from [employer] Thrive Questionnaire Date Thrive assessed: 07/06/24 I am a: Patient What is your living situation today?: I have a steady place to live Within the past 12 months, did the food you bought not last and you didn't have the money to get more?: Never true Within the past 12 months, did you worry whether your food would run out before you got money to buy more?: Never true Do you have trouble paying for medicines?: No Do you have trouble getting transportation to medical appointments?: No Do you have trouble paying your heating and electricity bill?: No Do you have trouble taking care of your child, family member or friend?: No Do you have trouble with day-to-day activities such as bathing, preparing meals, shopping, managing finances, etc.?: No Are you currently unemployed and looking for a job?: No Are you interested in more education?: No Please select the resources that you would like help with: None Currently or been in a relationship where the following occur: No concerns reported THRIVE Score: 0 AUDIT C Alcohol Use Questionnaire (AUDIT-C) 1. How often do you have a drink containing alcohol?: Never 3. How often do you have six or more drinks on one occasion?: Never Total Score: 0 Score Reviewed/Action Taken: Yes A[place]RI[place]-7 AMB Questionnaire ALEX[place]RIA-7 Date ALEXANDRIA - 7 assessed: 07/06/24 Feeling nervous, anxious, or on edge: 0 = Not at all Not being able to stop or control worryin = Not at all Worrying too much about different things: 0 = Not at all Trouble relaxin = Not at all Being so restless that it is hard to sit still: 0 = Not at all Becoming easily annoyed or irritable: 0 = Not at all Feeling afraid as if something awful might happen: 0 = Not at all Total [place]-7 score (0-4 normal; 5-9 mild; 10-14 moderate; 15-21 severe): 0 Source: Developed by Drs. Edgar Olmos, Gina Cool, Darius Mehta and colleagues, with an educational larisa from [employer] A[place]RIA-7 Assessment Billing ALEX[place]RIA-7 Assessment Tool: ALEX[place]RIA-7 Assessment 91127 Review of Systems Const Denies chills, Denies fatigue, Denies fever(s) and Denies headache(s) ENT Details: (+) pain and stiffness over her jaws recently Denies dysphagia, Denies dizziness, Denies otalgia, Denies headache(s), Denies neck pain, Denies odynophagia, Denies sinus pain and Denies sore throat Card Denies chest pain, Denies irregular heart rhythm, Denies palpitations and Denies dyspnea Resp Denies chest congestion, Denies cough and Denies dyspnea GI Denies abdominal pain, Denies constipation, Denies dysphagia, Denies heartburn, Denies diarrhea, Denies nausea, Denies odynophagia and Denies vomiting Denies urinary frequency, Denies dysuria and Denies urinary urgency Musc Details: (+) recurrent clicking noise from her cervical spine lately Reports back pain (on and off, over the lower back), Denies arthralgias and Denies neck pain Skin/Breast Denies rash Neuro Denies dizziness, Denies headache(s) and Denies paresthesias Psych Denies anxiety and Denies depression Endo Denies fatigue and Denies palpitations Alireza/Lymph Denies easy bruising Physical exam (Primary Care) Vital Signs: Last Vital Signs Pulse 75 07/06/24 14:40 BP 110/72 07/06/24 14:40 Pulse Ox 99 07/06/24 14:40 Oxygen Delivery Method Room Air 07/06/24 14:40 BMI result Body Mass Index 24.1 Tobacco/Smoking Status: Tobacco use Status Tobacco use date assessed 07/06/24 07/06/24 14:53 Patient Tobacco Use Status Former Tobacco user 07/06/24 14:41 Tobacco use type Cigarette 07/06/24 14:41 e-Cigarette/Vaping Use Never Used 07/06/24 14:41 PHQ-9: PHQ-9 Score PHQ-9: Total score 0 07/06/24 15:09 Depression Screening Interpretation: Negative Thrive Assessment: Date of Thrive Assessment Date Thrive assessed 07/06/24 07/06/24 14:53 Currently or been in a relationship where the following occur: No concerns reported Const General: no acute distress and alert HENMT Ears: TM's normal bilaterally and EAC's normal Throat: Yes posterior oropharynx normal and Yes tonsils normal (no TP congestion) Neck Neck: Yes supple and No lymphadenopathy Thyroid: Thyroid normal Resp Auscultation: clear to auscultation bilaterally, no rales and no wheezes Cardio Rate: regular rate Rhythm: regular rhythm Heart sounds: no murmurs GI Palpation (GI): Soft to palpation and nontender Auscultation: normal bowel sounds General: Yes no CVA tenderness Back/Spine/Pelvis Other: (+) crepitus noted from the cervical spine area Back: no CVA tenderness Cervical Spine: cervical muscular tenderness, cervical spasm and Cervical spine tenderness (mild) Thoracic/Lumbar Spine: lumbar spinal tenderness (mild) Skin Rashes: no rashes Extrem General: Yes no clubbing, cyanosis or edema Coding Level of Care Code Est Pt Level 3 (38562) Diagnoses Crepitus of cervical spine M24.80 Neck pain M54.2 Chronic jaw pain R68.84; G89.29 Additional Codes A[place]RIA-7 Assessment Billing - A[place]RIA-7 Assessment Tool: A[place]RIA-7 Assessment 42433 ([id number]) PHQ-9 - 85389 - PHQ-9 Billing: Yes ([id number]) Assessment & Plan Assessment & Plan (1) Crepitus of cervical spine: Code(s): M24.80 - Other specific joint derangements of unspecified joint, not elsewhere classified Category: Medical Plan: Have advised patient that the crepitus originating from her cervical spine are often caused by common issues like tightness and stiffness, poor posture, or arthritis Will send patient for cervical spine x-rays for further evaluation Advised patient that further recommendations will depend on how her x-rays come out (2) Neck pain: Code(s): M54.2 - Cervicalgia Category: Medical Plan: Patient is advised that her neck feels tight and she likely has some cervical muscle strain Will start her on Tizanidine 4 mg Q HS PRN (3) Chronic jaw pain: Code(s): R68.84 - Jaw pain; G89.29 - Other chronic pain Category: Medical Plan: Will also send patient for x-rays of both mandibles for further evaluation Plan To return as scheduled in August 2024 for her annual physical examination Orders: Orders XR cervical spine 3V 07/06/24 M54.2 - Cervicalgia, M81.0 - Age-related osteoporosis without current pathological fracture XR mandible min 4V 07/06/24 G89.29 - Other chronic pain, R68.84 - Jaw pain Medications: New tizanidine 4 mg PO BEDTIME PRN 30 tabs 0RF muscle spasms/neck pain 30 days MDD neck pain
== END 2024-07-06 15:19 | disposition home or self-care (01) ==
PROVIDERS: PCP Internal Medicine; Visit Provider Internal Medicine
DX: M24.80 Other specific joint derangements of unspecified joint, not elsewhere classified (principal); M54.2 Cervicalgia; R68.84 Jaw pain; G89.29 Other chronic pain

== ENCOUNTER 2024-07-06 14:35 | Outpatient (REF) | payer MEDICARE, SELFPAY ==
--- NOTE | ~2024-07-06 | XR_ITS ---
CLINICAL HISTORY: M54.2 - Cervicalgia 3 views cervical spine Comparison: CR/NV - CERV SPINE 4 TO 5 VIEWS [id number] - 09/16/18 17:41 EDT Findings: Appropriate alignment. Mild reversal of lordosis. No acute fractures or dislocation. Multilevel degenerative disc disease, most pronounced at C4-C5 and C5-C6 with progression since the prior study. Possible partial ankylosis at C5-C6. No prevertebral soft tissue swelling. IMPRESSION: 1. Reversal of lordosis suggesting muscle spasm. 2. Degenerative disc disease at C4-C5 and C5-C6 with progression. This document has been electronically signed by: Joann Guerra MD on 07/06/2024 16:18:34
--- NOTE | ~2024-07-06 | XR_ITS ---
CLINICAL HISTORY: R68.84 - Jaw pain 5 view mandible Comparison: CR/SR - XR MANDIBLE MIN 4V - 10/16/23 17:06 EDT Findings: No acute fractures. Temporomandibular joints intact. No sinus fluid. Mastoids are clear. No radiopaque foreign body. IMPRESSION: 1. No acute findings This document has been electronically signed by: Joann Guerra MD on 07/06/2024 16:17:11
== END 2024-07-06 14:36 | disposition home or self-care (01) ==
LOC: HO.XRAY 14:35
PROVIDERS: PCP Internal Medicine; Visit Provider Internal Medicine
DX: M24.80 Other specific joint derangements of unspecified joint, not elsewhere classified (principal); M54.2 Cervicalgia; R68.84 Jaw pain; M81.0 Age-related osteoporosis without current pathological fracture; M50.321 Other cervical disc degeneration at C4-C5 level; M50.322 Other cervical disc degeneration at C5-C6 level
CPT/HCPCS: 70110; 72040; 96127; 99212

== ENCOUNTER → 2024-07-06 15:24 | Outpatient (BNV) | payer MEDICARE, SELFPAY | PROVIDERS: PCP Internal Medicine; Visit Provider Radiology Diagnostic Radiology | DX: R68.84 Jaw pain (principal); M50.320 Other cervical disc degeneration, mid-cervical region, unspecified level | CPT/HCPCS: 70110; 72040 ==

== ENCOUNTER 2024-07-08 16:22 | Outpatient (REF) | payer MEDICARE, SELFPAY | END 2024-07-08 16:23 | disposition home or self-care (01) | LOC: HO.MAMMO 16:22 | PROVIDERS: PCP Internal Medicine; Visit Provider Internal Medicine | DX: Z12.31 Encounter for screening mammogram for malignant neoplasm of breast (principal) | CPT/HCPCS: 77063; 77067 ==

== ENCOUNTER → 2024-07-08 16:30 | Outpatient (BNV) | payer MEDICARE, SELFPAY | PROVIDERS: PCP Internal Medicine; Visit Provider Internal Medicine | DX: Z12.31 Encounter for screening mammogram for malignant neoplasm of breast (principal) | CPT/HCPCS: 77063; 77067 ==

== ENCOUNTER 2024-08-03 11:23 | Outpatient (REF) | payer MEDICARE, SELFPAY ==
--- OUTSIDE RECORDS SUMMARY | 2024-08-03 13:31 | XMS_ITS | Clinical Summary ---
Author Organization [facility] Address [phone] [facility] [place] [address] Care Team Providers Care Freight Flagman Name Role Phone Agustín Gardiner MD Primary Care Provider [phone] Allergies Active Allergy Reactions Criticality Noted Date [...] Medical Devices Not on file Care Teams Freight Flagman Relationship Specialty Start Date End Date Agustín Gardiner MD [address] [place] [address] [place] [id number] PCP - General Internal Medicine 01/05/24 Additional Source Comments The information contained in this document represents components of the legal health record. It is not the complete legal health record.[facility]
[2024-08-09 14:35] LABS: HPV Genotype 16 Negative (Negative); HPV Genotype 18 Negative (Negative); HPV High Risk Negative (Negative)
== END 2024-08-03 11:24 | disposition home or self-care (01) ==
LOC: HO.LNP 11:23
PROVIDERS: Obstetrics & Gynecology; PCP Internal Medicine; Visit Provider Advanced Practice Midwife
DX: Z01.419 Encounter for gynecological examination (general) (routine) without abnormal findings (principal); D25.9 Leiomyoma of uterus, unspecified
CPT/HCPCS: 87626; 88175; 99212; G0101; Q0091

== ENCOUNTER 2024-08-03 11:41 | Outpatient (AMB) | payer MEDICARE, SELFPAY ==
[2024-08-03 11:42] VITALS: BP 116/60; BMI 24.0
--- NOTE | 2024-08-03 11:42 | A.OFFVIS_ITS ---
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 No complaints. Last Pap/HPV was negative in 11/28 Last Mammogram was BI-RADS 1 in 07/10 Last Colonoscopy was done in 10/05, the recommendation was to repeat in 3 years No previous DEXA scan Pelvic ultrasound in 2020 showed the followin uterine fibroids are present measuring 1.1 x 0.7 x 0.9 cm, 0.7 x 0.8 x 0.8 cm, and 0.9 x 0.8 x 0.7 cm. These are all clustered near the fundus. The patient has no pelvic pain pressure or vaginal bleeding. [facility] Medical History Vitamin D deficiency COVID-19 vaccine series completed Post-operative nausea and vomiting Osteoporosis Impaired fasting glucose Migraine Surgical History Hx of tonsillectomy History of esophagogastroduodenoscopy (EGD) History of colonoscopy Hx laparoscopic cholecystectomy Previous section Family History Mother Breast cancer Social History Housing: House Are you a primary congregational care pastor to a significant other at home: No Do you presently have visiting nurse or other home services: No Alcohol intake: current Alcohol intake frequency: holidays/special occasions only Patient Tobacco Use Status: Former Tobacco user Tobacco use type: Cigarette e-Cigarette/Vaping Use: Never Used Second Hand Smoke Exposure: Yes service: No Current occupational status: retired Cognitive needs: No Hearing needs: No Vision needs: No Review of Systems Const All systems reviewed & are unremarkable except as noted in HPI and below Card Reports as per HPI Resp Reports as per HPI GI Reports as per HPI and Reports no additional complaints Reports as per HPI Physical Exam Vital Signs: Last Vital Signs BP 116/60 08/03/24 11:42 BMI result Body Mass Index 24.0 Const General: cooperative, healthy appearing and comfortable Chest Chest palpation & inspection: normal inspection of the chest and normal palpation of entire chest wall Breast/axilla inspection: normal inspection of the breasts and normal inspection of the axillae Breast/axilla palpation: normal palpation of the breasts, normal palpation of the axillae and no axillary lymphadenopathy Resp Effort & Inspection: normal respiratory effort Auscultation: clear to auscultation bilaterally Percussion: percussion normal Cardio Palpation: normal PMI Rate: regular rate Rhythm: regular rhythm Heart sounds: no murmurs and no rubs Peripheral pulses: Peripheral pulses 2+ throughout GI Inspection: Yes normal to inspection Palpation (GI): Soft to palpation, nontender, no guarding, not rigid and No hepatosplenomegaly present Percussion: Yes normal to percussion Auscultation: normal bowel sounds Rectal Exam - Female: deferred General: Yes bladder normal to palpation External Female Exam: No lesion Speculum Exam - Vagina: normal appearance of the vagina, normal palpation, normal vaginal discharge and not erythematous Speculum Exam - Cervix: normal appearance of the cervix and normal palpation Bimanual exam- vagina & uterus: normal bimanual exam, normal palpation, uterine size normal, bladder normal to palpation, consistency normal and normal palpation Bimanual Exam- Adnexa, other: normal adnexae, no masses and no tenderness Assessment & Plan Assessment & Plan (1) Well woman exam: Code(s): Z01.419 - Encounter for gynecological examination (general) (routine) without abnormal findings Category: Medical Plan: Co testing done. Counseled the patient about the recommended dietary allowance of 1200 mg of Calcium & 800 IU of vitamin D. Instructions given the patient to schedule next screening Mammogram in 07/11. The patient is is in the process of scheduling her appointment with GI for screening colonoscopy . Will order DEXA scan . The patient was instructed to perform monthly self-breast exams and to schedule a 2 week DEXA scan follow-up appointment and an annual exam in a year; All questions answered and the patient verbalized understanding. (2) Uterine myoma: Code(s): D25.9 - Leiomyoma of uterus, unspecified Category: Medical Plan: Pelvic ultrasound ordered, instructions given the patient to schedule an ultrasound follow-up appointment. All questions answered, the patient verbalized understanding Orders: Orders XR DEXA axial skeleton Today Z78.0 - Asymptomatic menopausal state Referrals Gastroenterology Referral Z12.11 - Encounter for screening for malignant neoplasm of colon Coding Level of Care Code New Pt Prev Care >65yr (39858) Diagnoses Well woman exam Z01.419 Uterine myoma D25.9
--- OUTSIDE RECORDS SUMMARY | 2024-08-03 12:52 | XMS_ITS | Clinical Summary ---
Author Organization [facility] Address [phone] [facility] [place] [address] Care Team Providers Care Beauty School Instructor Name Role Phone Agustín Gardiner MD Primary Care Provider [phone] Allergies Active Allergy Reactions Criticality Noted Date Comments Sulfa (Sulfonamide Antibiotics) 02/15 Medications No known medications Social History Tobacco Use Types Packs/Day Years Used Date Smoking Tobacco: Never Assessed Education Answer Date Recorded Are you interested in more education? Not on santos e 01/06/2024 Are you concerned about learning? Not on file 01/06/2024 No 01/06/2024 No 01/06/2024 Digital Access Answer Date Recorded No 01/06/2024 No 01/06/2024 Reliable internet access at home? Not on file 01/06/2024 Device with a working camera? Not on file Sex and Gender Information Value Date Recorded Sex Assigned at Not on file Gender Identity Not on file Sexual Orientation Not on file Last Filed Vital Signs Vital Sign Reading Time Taken Comments Blood Pressure 110/60 12/15/2013 11:48 AM EDT Pulse 67 12/15/2013 11:48 AM EDT Temperature - - Respiratory Rate 16 12/15/2013 11:48 AM EDT Oxygen Saturation - - Inhaled Oxygen Concentration - - Weight 70 kg (154 lb 6.4 oz) 12/15/2013 11:48 AM EDT Height - - Body Mass Index - - Plan of Treatment Health Maintenance Due Date Last Done Comments Adult Td,Tdap Booster 1958 LIPID PANEL 1958 DEPRESSION SCREENING 1970 SMOKING Hx and SMOKELESS TOB ACCO SCREENING 10/10/1971 HEPATITIS B SCREENING 1976 HEPATITIS C SCREENING 1976 HIV ONE-TIME SCREENING (18-6 5 YEARS) 1976 MAMMOGRAM 1998 COLOGUARD 10/10/2003 COLONOSCOPY 10/10/2003 COLORECTAL CANCER SCREENING 10/10/2003 FIT TEST 10/10/2003 FOBT 10/10/2003 SIGMOIDOSCOPY 10/10/2003 VIRTUAL COLONOSCOPY 10/10/2003 PNEUMOCOCCAL VACCINES (50+ y ears) (1 of 1 - PCV) 2008 ZOSTER VACCINES (1 of 2) 2008 OSTEOPOROSIS SCREENING INITI AL (ONE-TIME) 10/10/2023 INFLUENZA VACCINE (#1) 2024 COVID-19 VACCINE (1 - 2023-2 5 season) 2024 RSV VACCINE (1 - 1-dose 75+ series) 2033 HEPATITIS A VACCINES Aged Out No long er eligible based on patient's age to complete this topic HEPATITIS B VACCINES Aged Out No long er eligible based on patient's age to complete this topic HIB VACCINES Aged Out No longer eligi ble based on patient's age to complete this topic MENINGOCOCCAL VACCINES (ACWY) Aged Out No longer eligible based on patient's age to complete this topic Medical Devices Not on file Care Teams Beauty School Instructor Relationship Specialty Start Date End Date Agustín Gardiner MD [address] [place] [address] [place] [id number] PCP - General Internal Medicine 01/05/24 Additional Source Comments The information contained in this document represents components of the legal health record. It is not the complete legal health record.[facility]
== END 2024-08-03 12:37 | disposition home or self-care (01) ==
PROVIDERS: PCP Internal Medicine; Visit Provider Obstetrics & Gynecology
DX: D25.9 Leiomyoma of uterus, unspecified (principal); Z01.419 Encounter for gynecological examination (general) (routine) without abnormal findings
CPT/HCPCS: 99213; G0101; Q0091

== ENCOUNTER 2024-08-27 12:55 | Outpatient (REF) | payer MEDICARE, SELFPAY ==
--- NOTE | ~2024-08-27 | US_ITS ---
EXAMINATION: US KIDNEY BILATERAL HISTORY: N20.0 - Calculus of kidney TECHNIQUE: Real-time grayscale ultrasound imaging of the kidneys was performed and images were reviewed. COMPARISON: Comparison is made with the prior examination dated 05/29/2023. FINDINGS: Right kidney: The right kidney measures 11.6 x 4.7 x 4.4 cm. Renal parenchymal echotexture and thickness are normal. There are no masses. There is no hydronephrosis or renal calculi. Left Kidney: The left kidney measures 11.1 x 5.5 x 3.8 cm. Renal parenchymal echotexture and thickness are normal. There are no masses. There is no hydronephrosis or renal calculi. US/US renal BI IMPRESSION: Unremarkable renal ultrasound. Electronically signed by: Edgar Jimenez MD 08/27/2024 02:13 PM EDT
--- NOTE | ~2024-08-27 | US_ITS ---
EXAMINATION: US PELVIS HISTORY: R10.2 - Pelvic and perineal pain COMPARISON: Comparison is made with the prior examination dated 05/17/2021. TECHNIQUE: Transabdominal and endovaginal real-time 2D puentes-scale ultrasound was performed. FINDINGS: Uterus: The uterus is normal in size, measuring 5.9 x 2.5 x 3.9 cm. Myometrium has a normal echotexture. Multiple fibroids are noted including a left-sided fibroid measuring 7 x 7 x 9 mm (previously 11 x 7 x 9 mm), an anterior fibroid measuring 8 x 7 x 7 mm (previously 7 x 8 x 8 mm), and a fundal fibroid measuring 7 x 8 x 7 mm (previously 9 x 8 x 7 mm). Endometrium: The endometrial stripe measures 2 mm in thickness. Right ovary: The right ovary is not identified. Left ovary: The left ovary is not identified. Pelvic fluid: none. US/US pelvic complete IMPRESSION: Fibroid uterus as described, without change. The ovaries are not identified. Electronically signed by: Edgar Jimenez MD 08/27/2024 02:16 PM EDT
--- OUTSIDE RECORDS SUMMARY | 2024-08-27 14:26 | XMS_ITS | Clinical Summary ---
Author Organization [facility] Address [address] [place], [place] [id number] Phone Care Team Providers Care Addictions Counselor Name Role Phone Agustín Gardiner MD Primary Care Provider [phone] Allergies Active Allergy Reactions Criticality Noted Date [...] Medical Devices Not on file Care Teams Addictions Counselor Relationship Specialty Start Date End Date Agustín Gardiner MD [address] [place] [address] Dr [address] [place] [address] PCP - General Internal Medicine 01/05/24 Additional Source Comments The information contained in this document represents components of the legal health record. It is not the complete legal health record.[facility]
== END 2024-08-27 12:56 | disposition home or self-care (01) ==
LOC: HO.US 12:55
PROVIDERS: PCP Internal Medicine; Visit Provider Obstetrics & Gynecology
DX: N20.0 Calculus of kidney (principal); R10.2 Pelvic and perineal pain; D25.9 Leiomyoma of uterus, unspecified
CPT/HCPCS: 76775; 76856

== ENCOUNTER → 2024-08-27 12:58 | Outpatient (BNV) | payer MEDICARE, SELFPAY | PROVIDERS: PCP Internal Medicine; Visit Provider Radiology Diagnostic Radiology | DX: D25.9 Leiomyoma of uterus, unspecified (principal) | CPT/HCPCS: 76775 ==

== ENCOUNTER 2024-09-07 08:27 | Outpatient (REF) | payer MEDICARE, SELFPAY ==
[2024-09-07 10:16] LABS: MANUAL DIFF FLAG NO
[2024-09-07 10:22] LABS: Appearance Urine Clear; Color Urine Yellow; Glucose Urine UA Negative (Negative); Leukocyte Esterase Urine Moderate (2+) (Negative); Nitrite Urine Negative (Negative); PH 7.5 (5.0-9.0); Specific Gravity - Urine 1.015 (1.005-1.025); UMIC TRIGGER UACC YES; Urine Blood Negative (Negative); Urine Ketones Negative (Negative); Urine Protein Negative (Neg-Trace)
[2024-09-07 10:26] LABS: Basophils Absolute Auto 0.1 X10*3/uL (0.0-0.2); Basophils Percent Auto 1.1 % (0-2); Eosinophils Absolute Auto 0.1 X10*3/uL (0.0-0.4); Eosinophils Percent Auto 2.4 % (0-4); Hematocrit 38.7 % (37.0-47.0); Hemoglobin 13.2 g/dl (12.0-16.0); Imm Gran Abs Auto 0.01 X10*3/uL (0.00-0.03); Imm Gran Pct Auto 0.2 % (0.0-0.4); Lymphocytes Absolute Auto 1.9 X10*3/uL (1.2-4.9); Lymphocytes Percent Auto 35.3 % (20-40); Mean Corpuscular HGB Conc 34.1 g/dl (31.0-35.0); Mean Corpuscular Hemoglobin 28.8 pg (27.0-33.0); Mean Corpuscular Volume 84.3 fL (80.0-98.0); Mean Platelet Volume 10.3 fL (9.4-12.3); Monocytes Absolute Auto 0.5 X10*3/uL (0.1-1.2); Monocytes Percent Auto 8.5 % (2-11); Neutrophils Absolute Auto 2.8 x10*3/uL (2.0-8.3); Neutrophils Percent Auto 52.5 % (45-73); Platelet Count 234 X10*3/uL (160-400); Red Blood Count 4.59 X10*6/uL (4.20-5.50); Red Cell Distribution Width 13.1 % (11.0-16.0); White Blood Count 5.4 X10*3/uL (4.8-10.8)
[2024-09-07 10:30] LABS: Bacteria Urine None Seen (None Seen); Hyaline Casts Urine 0-2 /LPF (0-2); RBC Urine 0-2 /HPF (0-2); UACC Culture Trigger YES
[2024-09-07 10:33] LABS: Estimated Average Glucose 117 mg/dL; Hemoglobin A1c % 5.7 % (<6.0); Total Hemoglobin (HGBA1C) 3544.2763 umol/L
[2024-09-07 11:17] LABS: Alanine Aminotransferase 12 U/L (0-31); Albumin Level 3.9 g/dL (3.5-5.0); Alkaline Phosphatase 45 U/L (39-117); Anion Gap 7 (12-20); Aspartate Amino Transferase 17 U/L (5-31); Bilirubin Total 0.5 mg/dL (0.0-1.0); Blood Urea Nitrogen 14 mg/dL (9-16); Calcium 9.3 mg/dL (8.4-10.2); Carbon Dioxide 28 mmol/L (22-29); Chloride 107 mmol/L (96-108); Cholesterol 192 mg/dL (<200); Estimated Glomerular Filt Rate > 60; Glucose Fasting 92 mg/dL (60-99); HDL Cholesterol 58 mg/dL (>40); LDL Cholesterol Calculated 121 mg/dL (<100); Potassium 4.4 mmol/L (3.3-5.1); Sodium 138 mmol/L (135-145); Total Protein 6.6 g/dL (6.5-8.0); Triglycerides 66 mg/dL (<150)
[2024-09-07 11:37] LABS: TSH reflex Free T4 0.47 uIU/mL (0.32-4.0); Vitamin D 25-OH Total 45.4 ng/mL (>30)
== END 2024-09-07 08:28 | disposition home or self-care (01) ==
LOC: HO.HMGCLDS 08:27
PROVIDERS: PCP Internal Medicine; Visit Provider Internal Medicine
DX: D64.9 Anemia, unspecified (principal); R73.9 Hyperglycemia, unspecified; E78.00 Pure hypercholesterolemia, unspecified; E55.9 Vitamin D deficiency, unspecified; R30.0 Dysuria
CPT/HCPCS: 36415; 80053; 80061; 81001; 82306; 83036; 84443; 85025; 87086

== ENCOUNTER 2024-09-08 15:11 | Outpatient (AMB) | payer MEDICARE, SELFPAY ==
[2024-09-08 15:15] VITALS: BP 118/55; PULSE 65; BMI 24.2
--- NOTE | 2024-09-08 15:15 | A.OFFVIS_ITS ---
Vital Signs 09/08/24 15:15 Height 5 ft 6 in Weight 150 lb BMI 24.2 BP 118/55 L Blood Pressure Location Rt brachial Position Sitting Pulse 65 Intake Visit Reasons: Pre colonoscopy Allergies Sulfa (Sulfonamide Antibiotics) [SULFA (SULFONAMIDE ANTIBIOTICS)] Allergy (Severe, Verified 09/08/24 15:33) itching/swelling from sulfa eyedrops/family hx sulfa allery HPI HPI Pre colonoscopy: Details: Assessment & Plan (1) Sessile colonic polyp: Comment: 2018 scope repeat 3 years, for removed in 2021 repeat in 3 years Code(s): K63.5 - Polyp of colon Plan: She had N/V with the prep do the more, but she tolerated the procedure well. She had Suprep this time so next time may be we can try a MiraLax prep since diarrhea is her baseline and she should prep fairly quickly. I explained the results and she is agreeable to a 3 year follow-up. She is already informed all of her first-degree relatives including her children about her polyp so that they can be screened by age 45. Her bowels have returned to normal and she is satisfied with this service she has been given. LABS: Laboratory Tests 09/07/24 08:35 WBC 5.4 Hgb 13.2 Hct 38.7 Plt Count 234 Estimated GFR > 60 Total Bilirubin 0.5 AST 17 ALT 12 Alkaline Phosphatase 45 TSH 0.47 TODAY'S VISIT She has started having some HB and now occasional dysphagia with solid food sticking at the [facility] area. She is in favor of an EGD. Because of the difficulty she had in the past with vomiting PEG prep we will try MiraLax and Dulcolax. We tried getting Suprep covered for her last time but her insurance declined to cover it. She has had trouble with hypotension under general anesthesia in the past but has tolerated scope sedation well. She denies any cardiac or respiratory problems. No ID problems. She had a sessile polyp in 2019 and her father had colon polyps. [facility] Medical History (Updated 09/08/24 @ 16:02 by ZACHARY Simms) Well woman exam Annual physical exam Colon cancer screening Vitamin D deficiency COVID-19 vaccine series completed Post-operative nausea and vomiting Osteoporosis Impaired fasting glucose Migraine Surgical History Hx of tonsillectomy History of esophagogastroduodenoscopy (EGD) History of colonoscopy Hx laparoscopic cholecystectomy Previous section Family History Mother Breast cancer Social History Housing: House Are you a primary tree care foreman to a significant other at home: No Do you presently have visiting nurse or other home services: No Alcohol intake: current Alcohol intake frequency: holidays/special occasions only Patient Tobacco Use Status: Former Tobacco user Tobacco use type: Cigarette e-Cigarette/Vaping Use: Never Used Second Hand Smoke Exposure: Yes service: No Current occupational status: retired Cognitive needs: No Hearing needs: No Vision needs: No Review of Systems Const Denies fatigue, Denies fever(s), Denies night sweats, Denies poor appetite and Denies weight loss Eyes Details: glasses Reports requires corrective lenses ENT Reports Normal hearing present, Denies dental pain, Reports dysphagia, Denies hearing loss, Denies mouth pain, Denies odynophagia, Denies throat swelling, Denies tongue swelling and Reports other (Dentition adequate) Card Reports no additional complaints Resp Reports no additional complaints GI Details: Denies abdominal pain, Denies melena, Denies bloating, Denies hematochezia, Denies constipation, Denies GI cramping, Reports dysphagia, Denies excessive flatus, Denies early satiety, Reports heartburn, Denies diarrhea, Denies nausea, Denies odynophagia, Denies vomiting and Denies hematemesis Skin/Breast Denies pruritus, Denies lesions, Denies rash and Denies jaundice Neuro Reports Normal hearing present and Denies Abnormal speech present Endo Denies fatigue Aller/Immun Denies throat swelling and Denies tongue swelling Physical Exam Vital Signs: Last Vital Signs Pulse 65 09/08/24 15:15 BP 118/55 L 09/08/24 15:15 BMI result Body Mass Index 24.2 Const General: cooperative, no acute distress, well developed and well groomed Nutritional Appearance: average body habitus and well nourished Orientation/consciousness: oriented to person, oriented to place and oriented to time Limitations: No language barrier HEENT Head: Yes normocephalic and Yes atraumatic Eyes General: appearance normal, both eyes and all related structures Pupils: Equal, round and reactive pupils present Neck Neck: Yes normal visual inspection and Yes no lymphadenopathy Thyroid: Thyroid normal Resp Effort & Inspection: normal respiratory effort and able to speak in complete sentences Auscultation: clear to auscultation bilaterally Cardio Rate: regular rate Rhythm: regular rhythm Heart sounds: Normal, physiologic split S2 sound present Peripheral pulses: radial pulses present and posterior tibial pulses present GI Inspection: No distended and No Abdominal panniculus present Palpation (GI): Soft to palpation, nontender, no guarding, not rigid and No hepatosplenomegaly present Percussion: Yes normal to percussion Auscultation: normal bowel sounds Rectal Exam - Female: deferred Skin General skin exam: no rashes or lesions noted, turgor normal, skin not dry, no jaundice, No spider nevi and no striae Rashes: no rashes Nails: normal Neuro General: oriented to person, oriented to place and oriented to time Cranial nerves: Yes Equal, round and reactive pupils present and Yes Normal hearing present Speech: No Abnormal speech present Extrem General: Yes normal to inspection, No clubbing, No cyanosis and No edema Psych Appearance: grossly normal and well kempt Mental Status: mental status grossly normal Speech and movement: Normal speech and movement present Affect: normal affect Attitude: cooperative Thought process: Normal thought process present and not confabulating Thought content: Normal thought content present Insight: Good insight present (Psych) Judgement: Good judgement present (Psych) Results Reviewed Results Reviewed: Laboratory Tests 09/07/24 08:35 WBC 5.4 Hgb 13.2 Hct 38.7 Plt Count 234 Estimated GFR > 60 Total Bilirubin 0.5 AST 17 ALT 12 Alkaline Phosphatase 45 TSH 0.47 Assessment & Plan Assessment & Plan (1) Pre-op examination: Code(s): Z01.818 - Encounter for other preprocedural examination Category: Medical (2) Sessile colonic polyp: Comment: 2019 scope repeat 3 years, for removed in 2021 repeat in 3 years Code(s): K63.5 - Polyp of colon Category: Medical (3) Dysphagia: Code(s): R13.10 - Dysphagia, unspecified Category: Medical (4) Family history of colon cancer: Code(s): Z80.0 - Family history of malignant neoplasm of digestive organs Category: Medical Plan She has started having some HB and now [facility] She is in favor of an EGD. Because of the difficulty she had in the past with vomiting PEG prep we will try MiraLax and Dulcolax. We tried getting Suprep covered for her last time but her insurance declined to cover it. She has had trouble with hypotension under general anesthesia in the past but has tolerated scope sedation well. She denies any cardiac or respiratory problems. No ID problems. She had a sessile polyp in 2019 and her father had colon polyps. Orders: Orders EGD/[place] Combo - GI Use Only Today K63.5 - Polyp of colon, R13.10 - Dysphagia, unspecified Medications: New polyethylene glycol 3350 (Miralax) 238 grams PO ONCE 238 grams 0RF colonoscopy prep 1 day bisacodyl (Dulcolax (bisacodyl)) 10 mg (2 x 5 mg) PO BEDTIME 4 tabs 0RF 2 days Coding Level of Care Code New Pt Level 3 (85346) Diagnoses Pre-op examination Z01.818 Sessile colonic polyp K63.5 Dysphagia R13.10 Family history of colon cancer Z80.0
--- NOTE | 2024-09-08 15:15 | MHC.OFFVIS ---
Vital Signs 09/08/24 15:15 Height 5 ft 6 in Weight 150 lb BMI 24.2 BP 118/55 L Blood Pressure Location Rt brachial Position Sitting Pulse 65 Intake Visit Reasons: Pre colonoscopy Intake Note: Patient in office today for pre colonoscopy visit. CC: Patient reports doing well today and denies having any GI symptoms or concerns. Sample Taker Operator Required: No Accompanied by: Self / Same As Patient Allergies Sulfa (Sulfonamide Antibiotics) [SULFA (SULFONAMIDE ANTIBIOTICS)] Allergy (Severe, Verified 09/08/24 15:33) itching/swelling from sulfa eyedrops/family hx sulfa allery PFSH Medical History Vitamin D deficiency COVID-19 vaccine series completed Post-operative nausea and vomiting Osteoporosis Impaired fasting glucose Migraine Surgical History Hx of tonsillectomy History of esophagogastroduodenoscopy (EGD) History of colonoscopy Hx laparoscopic cholecystectomy Previous section Family History Mother Breast cancer Social History Housing: House Are you a primary intensive care ambulance paramedic to a significant other at home: No Do you presently have visiting nurse or other home services: No Alcohol intake: current Alcohol intake frequency: holidays/special occasions only Patient Tobacco Use Status: Former Tobacco user Tobacco use type: Cigarette e-Cigarette/Vaping Use: Never Used Second Hand Smoke Exposure: Yes service: No Current occupational status: retired Cognitive needs: No Hearing needs: No Vision needs: No Assessment & Plan Assessment & Plan Orders: Orders Colonoscopy - GI Use Only Today K63.5 - Polyp of colon Medications: New polyethylene glycol 3350 (Miralax) 238 grams PO ONCE 1 day 238 grams 0RF colonoscopy prep bisacodyl (Dulcolax (bisacodyl)) 10 mg (2 x 5 mg) PO BEDTIME 2 days 4 tabs 0RF Coding
--- OUTSIDE RECORDS SUMMARY | 2024-09-08 18:12 | XMS_ITS | Clinical Summary ---
Author Organization [facility] Address [address] [place], [place] [id number] Phone Care Team Providers Care Structural Steel Shop Supervisor Name Role Phone Agustín Gardiner MD Primary Care Provider [phone] Allergies Active Allergy Reactions Criticality Noted Date [...] Medical Devices Not on file Care Teams Structural Steel Shop Supervisor Relationship Specialty Start Date End Date Agustín Gardiner MD [address] [place] [address] Dr [address] [place] [address] PCP - General Internal Medicine 01/05/24 Additional Source Comments The information contained in this document represents components of the legal health record. It is not the complete legal health record.[facility]
== END 2024-09-08 15:49 | disposition home or self-care (01) ==
LOC: HO.HGI 15:12
PROVIDERS: PCP Internal Medicine; Visit Provider Nurse Practitioner
DX: R13.10 Dysphagia, unspecified (principal); Z12.11 Encounter for screening for malignant neoplasm of colon; Z86.0100 Personal history of colon polyps, unspecified; Z80.0 Family history of malignant neoplasm of digestive organs
CPT/HCPCS: 99213

== ENCOUNTER → 2024-09-08 15:11 | Outpatient (BNVA) | payer MEDICARE, SELFPAY | PROVIDERS: PCP Internal Medicine; Visit Provider Nurse Practitioner | DX: Z01.818 Encounter for other preprocedural examination (principal); K63.5 Polyp of colon; R13.10 Dysphagia, unspecified; Z80.0 Family history of malignant neoplasm of digestive organs | CPT/HCPCS: 99212 ==

== ENCOUNTER 2024-09-10 16:40 | Outpatient (AMB) | payer MEDICARE, SELFPAY ==
--- NOTE | 2024-09-10 16:42 | MHC.PC.OV ---
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: No Accompanied by: Self / Same As Patient Allergies Sulfa (Sulfonamide Antibiotics) [SULFA (SULFONAMIDE ANTIBIOTICS)] Allergy (Severe, Verified 09/10/24 17:06) itching/swelling from sulfa eyedrops/family hx sulfa allery Medication List - Last Reconciled 09/10/24 by Agustín Gardiner MD bisacodyl (Dulcolax (bisacodyl)) 10 mg (2 x 5 mg) PO BEDTIME 2 days calcium carbonate (Calcium 600) 600 mg PO DAILY cholecalciferol (vitamin D3) (Vitamin D3) 25 mcg PO DAILY hydrocodone-acetaminophen 5-325 mg 1 tab PO Q6-8H PRN 30 days polyethylene glycol 3350 (Miralax) 238 grams PO ONCE 1 day sumatriptan succinate 50 mg PO BID PRN tizanidine 4 mg PO BEDTIME PRN 30 days MDD neck pain vitamins A,C,I-pszb-vdozfg 4,296 mcg-226 mg-90 mg (PreserVision AREDS) 1 cap PO BID Tobacco use date assessed: 09/10/24 Fall risk assessment: No Falls in past year Last assessed Fall Risk: 09/10/24 Dental Screening Dental Screen Date: 09/10/24 Did you have a dental visit in the last 12 months?: Yes Did you have a dental problem in the last 6 months where you did not have access to dental care?: No Was dental information given to patient?: Patient has dentist HPI PHYSICAL HPI Details Patient comes in today for her annual physical examination States that she feels okay She denies any headaches or dizziness Denies any chest pains, no SOB No nausea/vomiting, no abdominal pain No change in bowel habits noted She denies any acute urinary symptoms States that she still has recurrent neck pains/spasms but her Tizanidine at bedtime helps a lot - states that she has a tendency to clench her jaw and also grind her teeth when she is sleeping at night, likely due to anxiety and she reports being under a lot of stress lately Recalls that she would often wake up in the morning with her jaw feeling very sore but taking Tizanidine at bedtime has helped alleviate a lot of her symptoms States that she has also changed her diet around and this has helped cut back a lot on her recurrent bouts with kidney stones States that her stones were calcium oxalate in composition and that is why she decided to change her diet for the better She had her follow up labs done a few days ago - to discuss her results She had her screening colonoscopy last done in 2021 and states that she is already scheduled for her repeat colonoscopy with Dr. Edmonds on 12/03/2024 She had her annual mammogram done a couple of months ago in June 2024 States that she is up-to-date with her yearly gynecology exam and pap smear - she had a normal pap smear and gynecology exam just last month (July 2024) She also had her repeat BMD done last year (September 2023) and is wondering when she can get a follow up BMD to monitor her osteoporosis She is currently taking a combined calcium 600 mg and vitamin D 25 mcg supplement and is wondering how much of this she should be taking - states that she used to take them separately but cannot find anymore Calcium tablets alone without any combination nowadays Adds that she was diagnosed with macular degeneration in both eyes by ophthalmology in [place] and she continues to follow up with them regularly for her eyes but is now considering seeing local specialists in [place] as it is getting more difficult for her to commute to [place] now because of her impaired vision [facility] Medical History (Updated 09/11/24 @ 01:21 by Agustín Gardiner MD) Cervical disc disease Lumbar degenerative disc disease Macular degeneration Vitamin D deficiency COVID-19 vaccine series completed Post-operative nausea and vomiting Osteoporosis Impaired fasting glucose Migraine Surgical History Hx of tonsillectomy History of esophagogastroduodenoscopy (EGD) History of colonoscopy Hx laparoscopic cholecystectomy Previous section Family History Mother Breast cancer Social History Housing: House Are you a primary primary care sales representative to a significant other at home: No Do you presently have visiting nurse or other home services: No Alcohol intake: current Alcohol intake frequency: holidays/special occasions only Patient Tobacco Use Status: Former Tobacco user Tobacco use type: Cigarette e-Cigarette/Vaping Use: Never Used Second Hand Smoke Exposure: Yes service: No Current occupational status: retired Cognitive needs: No Hearing needs: No Vision needs: No Questionnaire PHQ-9 Over the last 2 weeks, how often have you been bothered by any of the following problems? 1. Little interest or pleasure in doing things: not at all 2. Feeling down, depressed, or hopeless: not at all 3. Trouble falling or staying asleep, or sleeping too much: not at all 4. Feeling tired or having little energy: not at all 5. Poor appetite or overeating: not at all 6. Feeling bad about yourself - or that you are a failure or have let yourself or your family down: not at all 7. Trouble concentrating on things, such as reading the newspaper or watching television: not at all 8. Moving or speaking so slowly that other people could have noticed. Or the opposite - being so fidgety or restless that you have been moving around a lot more than usual: not at all 9. Thoughts that you would be better off or of hurting yourself in some way: not at all Total score: 0 Depression Screening Interpretation: Negative Depression Screening Done: Yes 90125 - PHQ-9 Billing: Yes Source: Developed by Drs. Edgar Olmos, Gina Cool, Darius Mehta and colleagues, with an educational larisa from [employer]. Thrive Questionnaire Date Thrive assessed: 09/10/24 I am a: Patient What is your living situation today?: I have a steady place to live Within the past 12 months, did the food you bought not last and you didn't have the money to get more?: Never true Within the past 12 months, did you worry whether your food would run out before you got money to buy more?: Never true Do you have trouble paying for medicines?: No Do you have trouble getting transportation to medical appointments?: No Do you have trouble paying your heating and electricity bill?: No Do you have trouble taking care of your child, family member or friend?: No Do you have trouble with day-to-day activities such as bathing, preparing meals, shopping, managing finances, etc.?: No Are you currently unemployed and looking for a job?: No Are you interested in more education?: No Please select the resources that you would like help with: None Currently or been in a relationship where the following occur: No concerns reported THRIVE Score: 0 AUDIT C Alcohol Use Questionnaire (AUDIT-C) 1. How often do you have a drink containing alcohol?: 2-4 times a month 2. How many drinks containing alcohol do you have on a typical day when you are drinking?: 1 or 2 3. How often do you have six or more drinks on one occasion?: Never Total Score: 2 Score Reviewed/Action Taken: Yes ALEX[place]RI[place]-7 AMB Questionnaire ALEXANDRIA-7 Date ALEX[place]RIA - 7 assessed: 09/10/24 Feeling nervous, anxious, or on edge: 0 = Not at all Not being able to stop or control worryin = Not at all Worrying too much about different things: 0 = Not at all Trouble relaxin = Not at all Being so restless that it is hard to sit still: 0 = Not at all Becoming easily annoyed or irritable: 0 = Not at all Feeling afraid as if something awful might happen: 0 = Not at all Total [place]-7 score (0-4 normal; 5-9 mild; 10-14 moderate; 15-21 severe): 0 Source: Developed by Drs. Edgar Olmos, Gina Cool, Darius Mehta and colleagues, with an educational larisa from [employer]. Review of Systems Const Denies chills, Denies fatigue, Denies fever(s), Reports headache(s) (occasional (migraine)) and Denies malaise Eyes Reports blurry vision (diagnosed with macular degeneration recently), Denies change in vision, Denies irritation and Denies itchy eyes ENT Denies dysphagia, Denies dizziness, Denies otalgia, Reports headache(s) (occasional (migraine)), Denies nasal congestion, Reports neck pain (recurrent ), Denies odynophagia, Denies sinus pain and Denies sore throat Card Denies chest pain, Denies rapid heart rate, Denies irregular heart rhythm, Denies palpitations and Denies dyspnea Resp Denies chest congestion, Denies cough, Denies dyspnea and Denies wheezing GI Denies abdominal pain, Denies bloating, Denies constipation, Denies dysphagia, Denies heartburn, Denies diarrhea, Denies nausea, Denies odynophagia and Denies vomiting Denies hematuria, Denies urinary frequency, Denies dysuria, Denies urinary incontinence and Denies urinary urgency Musc Denies back pain, Denies arthralgias, Denies joint swelling, Denies muscle weakness and Reports neck pain (recurrent ) Skin/Breast Denies breast pain, Denies breast mass, Denies change in pigmentation, Denies lesions, Denies rash and Denies unusual bruising Neuro Denies dizziness, Reports headache(s) (occasional (migraine)) and Denies paresthesias Psych Reports anxiety and Denies depression Endo Denies fatigue and Denies palpitations Alireza/Lymph Denies easy bruising Aller/Immun Denies itchy eyes and Denies wheezing Physical exam (Primary Care) Vital Signs: Last Vital Signs Pulse 70 09/10/24 16:43 BP 102/68 09/10/24 16:43 Pulse Ox 98 09/10/24 16:43 Oxygen Delivery Method Room Air 09/10/24 16:43 BMI result Body Mass Index 23.8 Tobacco/Smoking Status: Tobacco use Status Tobacco use date assessed 09/10/24 09/10/24 16:49 Patient Tobacco Use Status Former Tobacco user 09/10/24 16:49 Tobacco use type Cigarette 09/10/24 16:49 e-Cigarette/Vaping Use Never Used 09/10/24 16:49 PHQ-9: PHQ-9 Score PHQ-9: Total score 0 09/10/24 19:04 Depression Screening Interpretation: Negative Thrive Assessment: Date of Thrive Assessment Date Thrive assessed 09/10/24 09/10/24 16:49 Currently or been in a relationship where the following occur: No concerns reported Const General: no acute distress, alert and awake Orientation/consciousness: patient oriented x3 HENMT Head: Yes normocephalic and Yes atraumatic Ears: external ears normal, TM's normal bilaterally and EAC's normal General nose exam: No nasal discharge present Face and sinus: Yes normal facial exam and Yes sinuses nontender Teeth and gingiva: dentition normal Throat: Yes posterior oropharynx normal and Yes tonsils normal (no TP congestion) Eyes Eyelids: Yes eyelids normal Conjunctivae: conjunctivae normal Pupils: Equal, round and reactive pupils present EOM: EOMs intact bilaterally Neck Neck: Yes no lymphadenopathy and Yes supple Thyroid: Thyroid normal Resp Auscultation: clear to auscultation bilaterally, no rales and no wheezes Cardio Rate: regular rate Rhythm: regular rhythm Heart sounds: no murmurs GI Palpation (GI): Soft to palpation, nontender and No hepatosplenomegaly present Auscultation: normal bowel sounds General: Yes no CVA tenderness Back/Spine/Pelvis Back: no CVA tenderness Thoracic/Lumbar Spine: thoracic and lumbar spine normal to inspection Skin Lesions: no lesions Rashes: no rashes Neuro General: patient oriented x3, moves all extremities, no focal motor deficits and CN's II-XI intact bilaterally Cranial nerves: Yes Equal, round and reactive pupils present Cognition (Neuro): normal cognition Gait exam (Neuro): Normal gait present Extrem General: Yes no clubbing, cyanosis or edema Results Reviewed Results Reviewed: Laboratory Tests 09/07/24 09/07/24 08:35 08:40 WBC 5.4 Hgb 13.2 Hct 38.7 Plt Count 234 Sodium 138 Potassium 4.4 Creatinine 0.67 Estimated GFR > 60 Fasting Glucose 92 Hemoglobin A1c % 5.7 Calcium 9.3 AST 17 ALT 12 Triglycerides 66 Cholesterol 192 LDL Cholesterol, Calc 121 H HDL Cholesterol 58 25-OH Vitamin D Total 45.4 TSH 0.47 Urine pH 7.5 Ur Specific Randolph 1.015 Urine Protein Negative Urine Glucose (UA) Negative Urine Blood Negative Urine Nitrite Negative Ur Leukocyte Esterase Moderate (2+) H Coding Level of Care Code Est Pt Prev Care >65y(25822) Diagnoses Annual physical exam Z00.00 Osteoporosis without current pathological fracture, unspecified osteoporosis type M81.0 Osteoporosis type: unspecified Presence of current pathological fracture: without current pathological fracture Migraine without status migrainosus, not intractable, unspecified migraine type G43.909 Migraine type: unspecified Status migrainosus presence: without status migrainosus Intractability: not intractable Cervical disc disease M50.90 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 Degeneration of intervertebral disc of lumbar region with discogenic back pain M51.360 Disc-related pain type: discogenic back pain only Impaired fasting glucose R73.01 Nephrolithiasis N20.0 Vitamin D deficiency E55.9 Macular degeneration of both eyes, unspecified type H35.30 Macular degeneration type: unspecified type Eye laterality: bilateral Intramural leiomyoma of uterus D25.1 Uterine leiomyoma location: intramural Additional Codes PHQ-9 - 89360 - PHQ-9 Billing: Yes ([id number]) Assessment & Plan Assessment & Plan (1) Annual physical exam: Code(s): Z00.00 - Encounter for general adult medical examination without abnormal findings Category: Medical Plan: Results of her labs done a few days ago reviewed and discussed with patient Will have her recheck her labs again in 1 year for follow up She had her screening colonoscopy last done in 2021 and states that she is already scheduled for her repeat colonoscopy with Dr. Edmonds on 12/03/2024 She had her annual mammogram done a couple of months ago in June 2024 States that she is up-to-date with her yearly gynecology exam and pap smear - she had a normal pap smear and gynecology exam just last month (July 2024) She also had her repeat BMD done last year in September 2023 (2) Osteoporosis: Code(s): M81.0 - Age-related osteoporosis without current pathological fracture Category: Medical Qualifiers: Osteoporosis type: unspecified Presence of current pathological fracture: without current pathological fracture Qualified Code(s): M81.0 - Age-related osteoporosis without current pathological fracture Plan: Patient's repeat BMD done in September 2023 revealed (+) osteoporosis based on the lowest T-score value of -3.0 in the femoral neck Her left femur T-score is at -2.4, with 3.4% decrease from previous; her AP spine T-score is at -0.7, wih 6.5% decrease from previous Her previous BMD done in June 2021 revealed a T score of -2.8 and her BMD has shown then (+) 7.1% increase from previous and 13.2% increase from baseline in the AP spine and 4% increase from previous, and 4.3% increase from baseline in the left femur Patient was on Alendronate Rx from January 2016 through April 2021 Fall precautions reinforced She is reminded to continue to stay active and exercise regularly and to continue on her daily Calcium and Vitamin D intake - is on Calcium carbonate total of 1200 mg QD and Vitamin D3 1000 units QD Will consider getting a repeat BMD again next year (2 years) for follow up (3) Migraine: Code(s): G43.909 - Migraine, unspecified, not intractable, without status migrainosus Category: Medical Qualifiers: Migraine type: unspecified Status migrainosus presence: without status migrainosus Intractability: not intractable Qualified Code(s): G43.909 - Migraine, unspecified, not intractable, without status migrainosus Plan: Reinforced again avoidance of any potential migraine triggers Continue Sumatriptan 50 mg PRN and Hydrocodone-acetaminophen 5-325 mg Q 6 to 8 hours PRN ONLY for severe headaches (4) Cervical disc disease: Code(s): M50.90 - Cervical disc disorder, unspecified, unspecified cervical region Category: Medical Plan: Cervical spine x-rays done a couple of months ago in June 2024 revealed (+) degenerative disc disease at C4-C5 and C5-C6 with progression when compared to imaging studies done in 2018. There is also (+) reversal of lordosis noted suggesting muscle spasm Continue Tizanidine 4 mg Q HS PRN (5) Temporomandibular joint osteoarthritis: Code(s): M19.09 - Primary osteoarthritis, other specified site Category: Medical Plan: Mandibular x-rays done in October 2023 revealed (+) mild right temporomandibular joint space narrowing with mild subchondral sclerosis although repeat x-rays done in June 2024 came out normal Her findings are likely a result of her habit of clenching or grinding her teeth, which she appears to be doing more of recently due to increased stress and anxiety - she reports often waking up in the morning with her mouth and jaw already feeling very sore She has noticed (+) relief of her symptoms with Tizanidine 4 mg, taken Q HS PRN Have discussed better management of her stress and anxiety going forward to help minimize progression of this condition, with Rx for anxiety if necessary although patient is hoping to avoid Rx as much as possible (6) Lumbar degenerative disc disease: Code(s): M51.369 - Other intervertebral disc degeneration, lumbar region without mention of lumbar back pain or lower extremity pain Category: Medical Qualifiers: Disc-related pain type: discogenic back pain only Qualified Code(s): M51.360 - Other intervertebral disc degeneration, lumbar region with discogenic back pain only Plan: Abdominal and pelvic CT done in May 2022 revealed incidentally (+) degenerative changes of the lower lumbar spine Reinforced activity and weight-lifting restrictions to avoid aggravating her lower back symptoms She took Meloxicam 7.5 mg QD PRN for a while but is currently not taking any Rx for her lower back symptoms, which she has been able to manage conservatively She has Tizanidine 4 mg to take when needed (7) Impaired fasting glucose: Code(s): R73.01 - Impaired fasting glucose Category: Medical Plan: Reinforced low calorie/low carb diet Her FBS was normal at 92 mg/dl and HgbA1c was also normal at 5.7% on her recent labs (8) Nephrolithiasis: Code(s): N20.0 - Calculus of kidney Category: Medical Plan: (+) Hx of recurrent calcium oxalate kidney stones States that she has changed her diet around over the past few years and this seemed to have helped as she has not had any recurrence in a while now Her KUB and renal US done in late 2020 came back negative; abdominal and pelvic CT in 05/2022 and retroperitoneal US in 05/2023 all showed no evidence of stones in the urinary tract Her most recent renal US done a couple of weeks ago on 08/27/2024 also came back completely normal She is encouraged to continue to increase her daily oral fluid intake Follow up with urology (Dr. Davis) as scheduled (9) Vitamin D deficiency: Code(s): E55.9 - Vitamin D deficiency, unspecified Category: Medical Plan: Corrected on her recent labs Continue Vitamin D3 1000 units QD (10) Macular degeneration: Code(s): H35.30 - Unspecified macular degeneration Category: Medical Qualifiers: Macular degeneration type: unspecified type Eye laterality: bilateral Qualified Code(s): H35.30 - Unspecified macular degeneration Plan: Negin states that she was recently diagnosed with macular degeneration in both eyes by ophthalmology specialists in [place] and is continuing to follow up with them regularly but is now considering seeing local specialists in [place] as it is getting more difficult for her to commute to [place] regularly now because of her impaired vision Continue PreserVision AREDS 1 capsule BID (11) Uterine myoma: Code(s): D25.9 - Leiomyoma of uterus, unspecified Category: Medical Qualifiers: Uterine leiomyoma location: intramural Qualified Code(s): D25.1 - Intramural leiomyoma of uterus Plan: Pelvic US done a couple of weeks ago on 08/27/2024 revealed (+) multiple fibroids Follow up with gynecology as scheduled Plan To return in 1 year for her next annual physical examination Orders: Orders Comprehensive [place]. Panel Fast 1 Year E78.00 - Pure hypercholesterolemia, unspecified, Z00.00 - Encounter for general adult medical examination without abnormal findings Collagen Crosslinks NTX 1 Year M81.0 - Age-related osteoporosis without current pathological fracture, Z00.00 - Encounter for general adult medical examination without abnormal findings TSH reflex Free T4 1 Year E78.00 - Pure hypercholesterolemia, unspecified, Z00.00 - Encounter for general adult medical examination without abnormal findings Hemoglobin A1c 1 Year E11.9 - Type 2 diabetes mellitus without complications, Z00.00 - Encounter for general adult medical examination without abnormal findings Complete Blood Count Auto Diff 1 Year D64.9 - Anemia, unspecified, Z00.00 - Encounter for general adult medical examination without abnormal findings Lipid Panel 1 Year E78.00 - Pure hypercholesterolemia, unspecified, Z00.00 - Encounter for general adult medical examination without abnormal findings UA CC w/rflx Micro + Cult 1 Year R30.0 - Dysuria, Z00.00 - Encounter for general adult medical examination without abnormal findings Vitamin B12 and Folate 1 Year E53.8 - Deficiency of other specified B group vitamins, Z00.00 - Encounter for general adult medical examination without abnormal findings Vitamin D 25-OH Total 1 Year E55.9 - Vitamin D deficiency, unspecified, Z00.00 - Encounter for general adult medical examination without abnormal findings
[2024-09-10 16:43] VITALS: BP 102/68; PULSE 70; O2SAT 98; BMI 23.8
== END 2024-09-10 17:27 | disposition home or self-care (01) ==
LOC: HO.HMCH 16:41
PROVIDERS: PCP Internal Medicine; Visit Provider Internal Medicine
DX: Z00.00 Encounter for general adult medical examination without abnormal findings (principal); M81.0 Age-related osteoporosis without current pathological fracture; G43.909 Migraine, unspecified, not intractable, without status migrainosus; M19.09 Primary osteoarthritis, other specified site; M51.360 Other intervertebral disc degeneration, lumbar region with discogenic back pain only; M50.90 Cervical disc disorder, unspecified, unspecified cervical region; R73.01 Impaired fasting glucose; N20.0 Calculus of kidney; E55.9 Vitamin D deficiency, unspecified; H35.30 Unspecified macular degeneration; D25.1 Intramural leiomyoma of uterus

== ENCOUNTER → 2024-09-10 16:40 | Outpatient (BNVA) | payer MEDICARE, SELFPAY | PROVIDERS: PCP Internal Medicine; Visit Provider Internal Medicine | DX: Z00.00 Encounter for general adult medical examination without abnormal findings (principal); M81.0 Age-related osteoporosis without current pathological fracture; M50.90 Cervical disc disorder, unspecified, unspecified cervical region; M19.09 Primary osteoarthritis, other specified site; M51.360 Other intervertebral disc degeneration, lumbar region with discogenic back pain only; G43.909 Migraine, unspecified, not intractable, without status migrainosus; R73.01 Impaired fasting glucose; E55.9 Vitamin D deficiency, unspecified; N20.0 Calculus of kidney; H35.30 Unspecified macular degeneration; D25.1 Intramural leiomyoma of uterus | CPT/HCPCS: 96127; 99397 ==

== ENCOUNTER 2024-12-03 08:40 | Day surgery (SDC) | payer MEDICARE, SELFPAY ==
--- OUTSIDE RECORDS SUMMARY | 2024-10-18 08:26 | XMS_ITS | Clinical Summary ---
Author Organization [facility] Address [address] [place], [place] [id number] Phone Care Team Providers Care Box Maker Name Role Phone Agustín Gardiner MD Primary Care Provider [phone] Allergies Active Allergy Reactions Criticality Noted Date [...] Medical Devices Not on file Care Teams Box Maker Relationship Specialty Start Date End Date Agustín Gardiner MD [address] [place] [address] [address] [place] [address] PCP - General Internal Medicine 01/05/24 Additional Source Comments The information contained in this document represents components of the legal health record. It is not the complete legal health record.[facility]
[2024-12-01 11:49] VITALS: BMI 24.2
--- NOTE | 2024-12-02 10:27 | HO.ANESPROP2 ---
Documented by User: Dora Ferraro NP 12/02/24 10:27 HPI - Anesthesia Eval Consult details Narrative: 64yo F for Upper Endoscopy and Colonoscopy PMF Active Problems Active Problems: All Active Problems Cervical disc disease (Acute) Temporomandibular joint osteoarthritis (Acute) Lumbar degenerative disc disease (Acute) Annual physical exam (Acute) Macular degeneration (Acute) Pre-op examination (Acute) Dysphagia (Acute) Uterine myoma (Acute) Neck pain (Acute) Crepitus of cervical spine (Acute) Chronic jaw pain (Acute) Vitamin D deficiency (Acute) Right knee pain (Acute) Right leg injury (Acute) Nephrolithiasis (Acute) Low back pain (Acute) Lower abdominal pain, unspecified (Acute) Family history of colon cancer (Acute) Sessile colonic polyp (Acute) Osteoporosis (Acute) Impaired fasting glucose (Acute) Migraine (Acute) Past Medical History Medical History (Updated 09/11/24 @ 01:21 by Agustín Gardiner MD) Cervical disc disease Lumbar degenerative disc disease Macular degeneration Vitamin D deficiency COVID-19 vaccine series completed Post-operative nausea and vomiting Osteoporosis Impaired fasting glucose Migraine Family History Family History Mother Breast cancer Family history of problems with anesthesia: No Surgical History Surgical History Hx of tonsillectomy History of esophagogastroduodenoscopy (EGD) History of colonoscopy Hx laparoscopic cholecystectomy Previous section History of Problems with Anesthesia: No Social History Social History Housing: House Are you a primary care services manager to a significant other at home: No Do you presently have visiting nurse or other home services: No Alcohol intake: current Alcohol intake frequency: does not drink Patient Tobacco Use Status: Former Tobacco user Tobacco use type: Cigarette e-Cigarette/Vaping Use: Never Used Second Hand Smoke Exposure: Yes Advance Directives: No Advance Directives Information Provided: Yes service: No Current occupational status: retired Cognitive needs: No Hearing needs: No Vision needs: No Meds Allergies Allergy/AdvReac Type Severity Reaction Status Date / Time Sulfa (Sulfonamide Allergy Severe itching/swelling Verified 09/10/24 17:06 Antibiotics) (SULFA from sulfa (SULFONAMIDE ANTIBIOTICS)) eyedrops/family hx sulfa allery Home Medications ?Medication ?Instructions ?Recorded ?Confirmed ?Last Taken ?Type calcium carbonate (Calcium 600) 600 mg PO DAILY 08/02/21 09/10/24 Unknown History cholecalciferol (vitamin D3) 25 25 mcg PO DAILY 08/02/21 09/10/24 Unknown History mcg (1,000 unit) capsule (Vitamin D3) vitamins A,C,G-uesk-qkyjbm 4,296 1 cap PO BID 07/06/24 09/10/24 Unknown History mcg-226 mg-90 mg capsule (PreserVision AREDS) Exam Height,Weight and Vital Signs: Height 5 ft 6 in Weight 68.039 kg Assessment and Plan Assessment Anesthesia Assessment: Chart Reviewed Final Anesthetic Review Family History of Problems with Anesthesia: No History of Problems with Anesthesia: No Documented by User: Lyn Wasserman MD 12/03/24 09:48 [facility] Past Medical History Medical History (Updated 09/11/24 @ 01:21 by Agustín Gardiner MD) Cervical disc disease Lumbar degenerative disc disease Macular degeneration Vitamin D deficiency COVID-19 vaccine series completed Post-operative nausea and vomiting Osteoporosis Impaired fasting glucose Migraine Family History Family History Mother Breast cancer Surgical History Surgical History Hx of tonsillectomy History of esophagogastroduodenoscopy (EGD) History of colonoscopy Hx laparoscopic cholecystectomy Previous section Social History Social History Housing: House Are you a primary care services manager to a significant other at home: No Do you presently have visiting nurse or other home services: No Alcohol intake: current Alcohol intake frequency: does not drink Patient Tobacco Use Status: Former Tobacco user Tobacco use type: Cigarette e-Cigarette/Vaping Use: Never Used Second Hand Smoke Exposure: Yes Advance Directives: No Advance Directives Information Provided: Yes service: No Current occupational status: retired Cognitive needs: No Hearing needs: No Vision needs: No Meds Allergies Allergy/AdvReac Type Severity Reaction Status Date / Time Sulfa (Sulfonamide Allergy Severe itching/swelling Verified 09/10/24 17:06 Antibiotics) (SULFA from sulfa (SULFONAMIDE ANTIBIOTICS)) eyedrops/family hx sulfa allery Home Medications ?Medication ?Instructions ?Recorded ?Confirmed ?Last Taken ?Type calcium carbonate (Calcium 600) 600 mg PO DAILY 08/02/21 09/10/24 Unknown History cholecalciferol (vitamin D3) 25 25 mcg PO DAILY 08/02/21 09/10/24 Unknown History mcg (1,000 unit) capsule (Vitamin D3) vitamins A,C,E-goqo-oreldt 4,296 1 cap PO BID 07/06/24 09/10/24 Unknown History mcg-226 mg-90 mg capsule (PreserVision AREDS) Exam Airway Mallampati Class: II (implants and caps laterally) TM Dist: >3cm Neck ROM: Full Heart: rrr Lungs: cta Assessment and Plan Assessment Anesthesia Assessment: Anesthesia Plan Discussed Final Anesthetic Review NPO: Yes ASA Class: II Final Preanesthetic Review: No Changes in Pt Med Stat, Meds/Allgs Chart Reviewed and Consent Obtained/Reviewed Patient Risk: Intermediate Procedure Risk: Intermediate Anesthetic Plan Anesthetic Plan: MAC: Disposition: Standard PACU
--- NOTE | 2024-12-03 09:05 | MHC.SHP ---
Pre-Procedural Eval Section A - 24 Hr Update-Section A only Date of Service: 12/03/24 The patient is an INPATIENT: No The patient has been examined within 24 hours of the surgical procedure. The History & Physical has been completed within 30 days and I have reviewed it.: No Section B - Complete if H&P > 30 days Chief Complaint: Surveillance for colon polyps, GERD, dysphagia Relevant Family History (Specify if Yes): Yes Relevant Social History: Tobacco Use (Former smoker) Present Medications: see Short Stay Collaborative assessment Medical History: Significant History (Vitamin D deficiency COVID-19 vaccine series completed Post-operative nausea and vomiting Osteoporosis Impaired fasting glucose Migraine) History of Previous Operations: Relevant previous surgery/procedure and date(s) (Hx of tonsillectomy History of esophagogastroduodenoscopy (EGD) History of colonoscopy Hx laparoscopic cholecystectomy Previous section) Allergies: Allergies Allergy/AdvReac Type Severity Reaction Status Date / Time Sulfa (Sulfonamide Allergy Severe itching/swelling Verified 09/10/24 17:06 Antibiotics) (SULFA from sulfa (SULFONAMIDE ANTIBIOTICS)) eyedrops/family hx sulfa allery Review of Systems Sugical H&P ROS: Negative: Constitution, Cardiovascular, Respiratory and Gastrointestinal Exam Surgical H&P Exam: Normal: Heart, Normal: Lungs, Normal: Extremities and Normal: Abdomen Plan Diagnosis/Plan: Unchanged I have reviewed the history and physical and performed a pertinent physical examination on my patient. No changes have occurred unless specified. Time Spent With Patient Time: Total time managing care of this patient today ____ minutes.
[2024-12-03 09:06] VITALS: BP 132/54; PULSE 70; RESP 16; TEMP 37; O2SAT 99; BMI 23.6
[2024-12-03] MEDS: Lactated Ringers 1,000 ML 100 ML IVCONT (09:10)
--- NOTE | 2024-12-03 10:11 | P.OPN-COLO_ITS ---
Colonoscopy Operative Note Operative Note Date of Service: 12/03/24 Narrative: FLEXIBLE TRANSORAL UPPER GASTROINTESTINAL ENDOSCOPY WITH BIOPSIES, SNARE POLYPECTOMY AND ESOPHAGEAL BALLOON DILATION AND COLONOSCOPY TILL CECUM WITH BIOPSIES AND SNARE POLYPECTOMY Pre-op diagnosis: Colon cancer screening, GERD, dysphagia Post-op diagnosis: GERD, Gastritis, multiple gastric polyps Colon Polyps, Diverticulosis, hemorrhoids Endoscopist:? Pool Edmonds MD Anesthesia:?MAC UPPER ENDOSCOPY Consent: Indications for the procedure and potential complications of bleeding, perforation, reaction to medications and missed diagnosis were discussed with the patient and informed consent was obtained. Instrument: Olympus GIF H 190 mid size upper endoscope Monitoring: Vital signs and clinical assessment, continuous EKG monitoring, Pulse oximetry, Carbon Dioxide monitoring and blood pressure monitoring were done throughout the procedure. Procedure: The patient was placed in the left lateral decubitis position and pre-procedure medications were administered and a bite block was placed. The endoscope was inserted into the mouth and advanced under direct vision to the third part of duodenum. A careful inspection was made as the upper endoscope was withdrawn including a retroflexed examination of the proximal stomach; Findings and interventions are described below. Findings: Larynx: Normal Esophagus: GE junction at 36 cms. No esophagitis or Vernon's. Mildly tortuous esophagus without stricture or ring. Empiric balloon dilation of LES was performed with a 20 mm (60 F) CRE balloon x 60 seconds Stomach: Multiple 5 mm -2 cms benign appearing polyps in the gastric body and fundus - two polyps were removed with a cold snare. Moderate diffuse gastric erythema - biopsies were obtained from the antrum. Grade 2 flap valve on retroflexed examination of the cardia. Duodenum: Normal bulb and descending duodenum Intervention: Biopsies as noted above COLONOSCOPY PROCEDURE NOTE Instrument: Olympus PCF H 190 L variable stiffness pediatric colonoscope Monitoring: Vital signs and clinical assessment, intermittent blood pressure monitoring, continuous EKG monitoring, Pulse oximetry and Carbon Dioxide monitoring were done throughout the procedure. Please see anesthesia flowsheet. Colon withdrawl time was 21 minutes. Procedure: The patient was placed in the left lateral decubitis position and pre-procedure medications were administered. After a digital rectal examination of the ano-rectum, the video colonoscope was inserted into the rectum and advanced through the colon to the cecum. The colonoscope was slowly withdrawn in a retrograde panoramic fashion and the colon mucosa was carefully examined including a retroflexed view of the rectum. Findings and interventions are described below. Procedure Difficulty: without difficulty Findings: Terminal Ileum: Not evaluated Cecum: Normal Ascending Colon: A 7-8 mm sessile polyp - removed with a cold snare. two 2-3 mm sessile polyps - removed with a cold biopsy. Transverse Colon: Polypectomy site visualized at 60 cm without recurrent polyp. A 10 mm sessile polyp at 55 cms - removed with a cold snare. Descending Colon: Moderate diverticulosis Sigmoid Colon: Severe diverticulosis Rectum: Normal Ano-rectum: Moderate internal hemorrhoids Colon preparation: Excellent, after some irrigation. [place] Bowel Preparation Scale Right colon; 3 Transverse colon: 3 Left colon; 3 (0 = Unprepared colon segment with mucosa not seen due to solid stool that cannot be cleared. 1 = Portion of mucosa of the colon segment seen, but other areas of the colon segment not well seen due to staining, residual stool and/or opaque liquid. 2 = Minor amount of residual staining, small fragments of stool and/or opaque liquid, but mucosa of colon segment seen well. 3 = Entire mucosa of colon segment seen well with no residual staining, small fragments of stool or opaque liquid) Impression and Post Procedure Diagnosis: Endoscopy Findings: ESOPHAGUS: GE junction at 36 cms. No esophagitis or Vernon's. Mildly tortuous esophagus without stricture or ring. Empiric balloon dilation of LES was performed with a 20 mm (60 F) CRE balloon x 60 seconds STOMACH: Multiple 5 mm -2 cms benign appearing polyps in the gastric body and fundus - two polyps were removed with a cold snare. DUODENUM: Normal Colonoscopy Findings: Four small to medium sized polyps were removed Moderate to severe diverticulosis seen in the left colon Moderate hemorrhoids on retroflexed exam. Plan: Pt has a FU appointment on 12/15/24 with Ching Enciso NP, If pt has persistent dysphagia, consider further evaluation with a barium swallow. If gastric polyps are hyperplastic, repeat EGD in 6 months for removal of the polyps. Repeat Colonoscopy in 5 years if polyps are adenomatous and 10 year if polyps are hyperplastic. A summary of above findings and relevant handouts were given to the patient. BIOPSIES SHOWED: A. Stomach, antrum, biopsy: Gastric antral mucosa with mild chronic inactive gastritis; negative for Helicobacter pylori, intestinal metaplasia and dysplasia. B. Stomach, polyps, biopsy: Fundic gland polyp (s); negative for Helicobacter pylori, intestinal metaplasia and dysplasia. C. Colon, ascending, polypectomy x2: Clinically polypoid colonic mucosa noted; negative for a hyperplastic or neoplastic process. D. Colon, transverse, polypectomy: Tubular adenoma; negative for high-grade dysplasia. Letter sent to the patient biopsy results. Patient was placed on the colonoscopy recall list for repeat colonoscopy in 5 years.
[2024-12-03 10:52] VITALS: BP 81/51; PULSE 74; RESP 16; TEMP 36.1; O2SAT 98
[2024-12-03 10:55] VITALS: BP 96/47
[2024-12-03 11:07] VITALS: BP 112/42; PULSE 63; RESP 18; TEMP 36.3; O2SAT 100
== END 2024-12-03 11:59 | disposition home or self-care (01) ==
PROVIDERS: PCP Internal Medicine; Visit Provider Internal Medicine Gastroenterology
PROC: (CPT 45385; principal; 2024-12-03 10:30)
DX: Z12.11 Encounter for screening for malignant neoplasm of colon (principal); D12.3 Benign neoplasm of transverse colon; K57.30 Diverticulosis of large intestine without perforation or abscess without bleeding; K64.8 Other hemorrhoids; Z86.0101 Personal history of adenomatous and serrated colon polyps; Z80.0 Family history of malignant neoplasm of digestive organs; R13.10 Dysphagia, unspecified; K22.89 Other specified disease of esophagus; K31.7 Polyp of stomach and duodenum; K21.9 Gastro-esophageal reflux disease without esophagitis; K29.70 Gastritis, unspecified, without bleeding; Z87.891 Personal history of nicotine dependence
CPT/HCPCS: 45385; 45380; 43251; 43249; 43239; 88305; 88313; 88342; C1726; J2003; J2704

== ENCOUNTER → 2024-12-03 08:40 | Outpatient (BNV) | payer MEDICARE, SELFPAY | PROVIDERS: PCP Internal Medicine; Visit Provider Internal Medicine Gastroenterology | DX: K22.2 Esophageal obstruction (principal); K21.9 Gastro-esophageal reflux disease without esophagitis; K29.70 Gastritis, unspecified, without bleeding; K31.7 Polyp of stomach and duodenum; Z12.11 Encounter for screening for malignant neoplasm of colon; K63.5 Polyp of colon; K57.90 Diverticulosis of intestine, part unspecified, without perforation or abscess without bleeding; K64.8 Other hemorrhoids | CPT/HCPCS: 43239; 43249; 43251; 45380; 45385 ==

== ENCOUNTER 2024-12-30 09:05 | Outpatient (AMB) | payer MEDICARE, SELFPAY ==
--- NOTE | 2024-12-30 09:12 | MHC.OFFVIS ---
Vital Signs 12/30/24 09:14 Height 5 ft 6 in Weight 143 lb 4.807 oz BMI 23.1 BP 123/64 Blood Pressure Location Lt brachial Position Sitting Pulse 77 Intake Visit Reasons: S/P double; Dr. Edmonds Intake Note: Nicole presents in the office as a follow up EGD and COLO. CC: She states she just has some questions. 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 Edmonds: Details: Assessment & Plan (1) Pre-op examination: Code(s): Z01.818 - Encounter for other preprocedural examination Category: Medical (2) Sessile colonic polyp: Comment: 2019 scope repeat 3 years, for removed in 2021 repeat in 3 years Code(s): K63.5 - Polyp of colon Category: Medical (3) Dysphagia: Code(s): R13.10 - Dysphagia, unspecified Category: Medical (4) Family history of colon cancer: Code(s): Z80.0 - Family history of malignant neoplasm of digestive organs Category: Medical Plan She has started having some HB and now occasional dysphagia with solid food sticking at the [facility] area. She is in favor of an EGD. Because of the difficulty she had in the past with vomiting PEG prep we will try MiraLax and Dulcolax. We tried getting Suprep covered for her last time but her insurance declined to cover it. She has had trouble with hypotension under general anesthesia in the past but has tolerated scope sedation well. She denies any cardiac or respiratory problems. No ID problems. She had a sessile polyp in 2019 and her father had colon polyps. Orders: Orders EGD/[facility] - GI Use Only Today K63.5 - Polyp of colon, R13.10 - Dysphagia, unspecified Medications: New polyethylene glycol 3350 (Miralax) 238 grams PO ONCE 238 grams 0RF colonoscopy prep 1 day bisacodyl (Dulcolax (bisacodyl)) 10 mg (2 x 5 mg) PO BEDTIME 4 tabs 0RF 2 days EGD/COLONOSCOPY 12/03/24 Findings: Larynx: Normal Esophagus: GE junction at 36 cms. No esophagitis or Vernon's. Mildly tortuous esophagus without stricture or ring. Empiric balloon dilation of LES was performed with a 20 mm (60 F) CRE balloon x 60 seconds Stomach: Multiple 5 mm -2 cms benign appearing polyps in the gastric body and fundus - two polyps were removed with a cold snare. Moderate diffuse gastric erythema - biopsies were obtained from the antrum. Grade 2 flap valve on retroflexed examination of the cardia. Duodenum: Normal bulb and descending duodenum Findings: Terminal Ileum: Not evaluated Cecum: Normal Ascending Colon: A 7-8 mm sessile polyp - removed with a cold snare. two 2-3 mm sessile polyps - removed with a cold biopsy. Transverse Colon: Polypectomy site visualized at 60 cm without recurrent polyp. A 10 mm sessile polyp at 55 cms - removed with a cold snare. Descending Colon: Moderate diverticulosis Sigmoid Colon: Severe diverticulosis Rectum: Normal Ano-rectum: Moderate internal hemorrhoids Impression and Post Procedure Diagnosis: Endoscopy Findings: ESOPHAGUS: GE junction at 36 cms. No esophagitis or Vernon's. Mildly tortuous esophagus without stricture or ring. Empiric balloon dilation of LES was performed with a 20 mm (60 F) CRE balloon x 60 seconds STOMACH: Multiple 5 mm -2 cms benign appearing polyps in the gastric body and fundus - two polyps were removed with a cold snare. DUODENUM: Normal Colonoscopy Findings: Four small to medium sized polyps were removed Moderate to severe diverticulosis seen in the left colon Moderate hemorrhoids on retroflexed exam. Plan: Pt has a FU appointment on 12/15/24 with Ching Enciso NP, If pt has persistent dysphagia, consider further evaluation with a barium swallow. If gastric polyps are hyperplastic, repeat EGD in 6 months for removal of the polyps. Repeat Colonoscopy in 5 years if polyps are adenomatous and 10 year if polyps are hyperplastic. A summary of above findings and relevant handouts were given to the patient. BIOPSIES SHOWED: A. Stomach, antrum, biopsy: Gastric antral mucosa with mild chronic inactive gastritis; negative for Helicobacter pylori, intestinal metaplasia and dysplasia. B. Stomach, polyps, biopsy: Fundic gland polyp (s); negative for Helicobacter pylori, intestinal metaplasia and dysplasia. C. Colon, ascending, polypectomy x2: Clinically polypoid colonic mucosa noted; negative for a hyperplastic or neoplastic process. D. Colon, transverse, polypectomy: Tubular adenoma; negative for high-grade dysplasia. TODAY'S VISIT She did very well with the Miralax and duclolax. The procedure should be repeated in 3 years r/t the size of the ascending polyp. The procedure was well tolerated. The results were explained and the patient is agreeable to the follow-up interval as stated. The bowel pattern has returned to normal. Education was provided to tell any 1st degree relatives about their findings to be sure that they are screened by age 45. Educated that they will be put on a recall list when it is time for their repeat scope but should they move out of state or away from the hospital they will need to remember along with their primary to repeat the procedure in a timely fashion to avoid any adverse complications. Return PRN and could consider barium swallow if her swallowing problems return. [facility] Medical History (Updated 12/30/24 @ 11:18 by ZACHARY Simms) Annual physical exam Cervical disc disease Lumbar degenerative disc disease Macular degeneration Vitamin D deficiency COVID-19 vaccine series completed Post-operative nausea and vomiting Osteoporosis Impaired fasting glucose Migraine Surgical History Hx of tonsillectomy History of esophagogastroduodenoscopy (EGD) History of colonoscopy Hx laparoscopic cholecystectomy Previous section Family History Mother Breast cancer Social History Housing: House Are you a primary intensive care unit nurse to a significant other at home: No Do you presently have visiting nurse or other home services: No Alcohol intake: current Alcohol intake frequency: does not drink Patient Tobacco Use Status: Former Tobacco user Tobacco use type: Cigarette e-Cigarette/Vaping Use: Never Used Second Hand Smoke Exposure: Yes service: No Current occupational status: retired Cognitive needs: No Hearing needs: No Vision needs: No Review of Systems Const Denies fatigue, Denies fever(s), Denies night sweats, Denies poor appetite and Denies weight loss ENT Reports Normal hearing present, Denies dental pain, Denies dysphagia, Denies hearing loss, Denies mouth pain, Denies odynophagia, Denies throat swelling, Denies tongue swelling and Reports other (Dentition adequate) Card Reports no additional complaints Resp Reports no additional complaints GI Details: Denies abdominal pain, Denies melena, Denies bloating, Denies hematochezia, Denies constipation, Denies GI cramping, Denies dysphagia, Denies excessive flatus, Denies early satiety, Denies heartburn, Denies diarrhea, Denies nausea, Denies odynophagia, Denies vomiting and Denies hematemesis Skin/Breast Denies pruritus, Denies lesions, Denies rash and Denies jaundice Neuro Reports Normal hearing present and Denies Abnormal speech present Endo Denies fatigue Aller/Immun Denies throat swelling and Denies tongue swelling Physical Exam Vital Signs: Last Vital Signs Pulse 77 12/30/24 09:14 BP 123/64 12/30/24 09:14 BMI result Body Mass Index 23.1 Const General: cooperative, no acute distress, well developed and well groomed Nutritional Appearance: well nourished, obese and overweight Orientation/consciousness: oriented to person, oriented to place and oriented to time Limitations: No language barrier, ambulation with cane, ambulation with walker and wheelchair HEENT Head: Yes normocephalic and Yes atraumatic Eyes General: appearance normal, both eyes and all related structures Pupils: Equal, round and reactive pupils present Neck Neck: Yes normal visual inspection and Yes no lymphadenopathy Thyroid: Thyroid normal Resp Effort & Inspection: normal respiratory effort and able to speak in complete sentences Auscultation: clear to auscultation bilaterally Cardio Rate: regular rate Rhythm: regular rhythm Heart sounds: Normal, physiologic split S2 sound present Peripheral pulses: radial pulses present and posterior tibial pulses present GI Inspection: No distended and No Abdominal panniculus present Palpation (GI): Soft to palpation, nontender, no guarding, not rigid and No hepatosplenomegaly present Percussion: Yes normal to percussion Auscultation: normal bowel sounds Rectal Exam - Female: deferred Skin General skin exam: no rashes or lesions noted, turgor normal, skin not dry, no jaundice, No spider nevi and no striae Rashes: no rashes Nails: normal Neuro General: oriented to person, oriented to place and oriented to time Cranial nerves: Yes Equal, round and reactive pupils present and Yes Normal hearing present Speech: No Abnormal speech present Extrem General: Yes normal to inspection, No clubbing, No cyanosis and No edema Psych Appearance: grossly normal and well kempt Mental Status: mental status grossly normal Speech and movement: Normal speech and movement present Affect: normal affect Attitude: cooperative Thought process: Normal thought process present and not confabulating Thought content: Normal thought content present Insight: Good insight present (Psych) Judgement: Good judgement present (Psych) Assessment & Plan Assessment & Plan (1) Dysphagia: Code(s): R13.10 - Dysphagia, unspecified Category: Medical (2) Sessile colonic polyp: Comment: 11/2024 scope= 2 TA is repeat in 3 years due to size; 2018 scope repeat 3 years, for removed in 2021 repeat in 3 years Code(s): K63.5 - Polyp of colon Category: Medical (3) Family history of colon cancer: Code(s): Z80.0 - Family history of malignant neoplasm of digestive organs Category: Medical Plan She did very well with the Miralax and duclolax. The procedure should be repeated in 3 years r/t the size of the ascending polyp. The procedure was well tolerated. The results were explained and the patient is agreeable to the follow-up interval as stated. The bowel pattern has returned to normal. Education was provided to tell any 1st degree relatives about their findings to be sure that they are screened by age 45. Educated that they will be put on a recall list when it is time for their repeat scope but should they move out of state or away from the hospital they will need to remember along with their primary to repeat the procedure in a timely fashion to avoid any adverse complications. Return PRN and could consider barium swallow if her swallowing problems return. Coding Level of Care Code Est Pt Level 3 (81775) Diagnoses Dysphagia R13.10 Sessile colonic polyp K63.5 Family history of colon cancer Z80.0
[2024-12-30 09:14] VITALS: BP 123/64; PULSE 77; BMI 23.1
== END 2024-12-30 09:43 | disposition home or self-care (01) ==
LOC: HO.HGI 09:06
PROVIDERS: PCP Internal Medicine; Visit Provider Nurse Practitioner
DX: R13.10 Dysphagia, unspecified (principal); K63.5 Polyp of colon; Z80.0 Family history of malignant neoplasm of digestive organs
CPT/HCPCS: 99213

== ENCOUNTER → 2024-12-30 09:05 | Outpatient (BNVA) | payer MEDICARE, SELFPAY | PROVIDERS: PCP Internal Medicine; Visit Provider Nurse Practitioner | DX: K63.5 Polyp of colon (principal); R13.10 Dysphagia, unspecified; Z80.0 Family history of malignant neoplasm of digestive organs | CPT/HCPCS: 99212 ==